=== PATIENT | male | born 1955 | race Caucasian/White ===

== ENCOUNTER 2021-08-09 15:54 | Outpatient (REF) | payer OTHER, SELFPAY ==
--- NOTE | 2021-08-09 16:29 | MHC.AU.ANR ---
Adult Audiological Evaluation Date of Visit: 08/09/21 Reason for Appointment: Audiological re-evaluation to monitor the status of his hearing loss. Mr. Lauren has a known asymmetrical, high-frequency, sensorineural hearing loss, with his right ear hearing worse than his left. He feels his hearing has been gradually decreasing, and he is now interested in trying a hearing aid. He notes that since his last visit, he saw Dr. Bagley regarding his asymmetric hearing. He states that Dr. Bagley did not mention an MRI. He denies any changes to his medical history. Does patient feel they have a hearing loss?: Yes If Yes, Which Ear?: Both Ears Has hearing been tested previously?: Yes [place] [facility] [place] In the left ear, normal hearing sloping to a moderate high-frequency sensorineural hearing loss. In the right ear, normal hearing sloping to a profound high-frequency sensorineural. Medical History: Medical History: High Blood Pressure, high cholesterol, heart problems which required a stent in 2002 Otoscopy: Right Ear: Unremarkable Left Ear: Unremarkable Tympanometry: Tympanometry performed due to: To assess integrity of the middle ear system Right Ear: Normal Middle Ear System (Type A) Left Ear: Normal Middle Ear System (Type A) Hearing Evaluation: Transducer(s) Used: Insert Earphones, Bone Conduction Method: Conventional Audiometry Stimuli Used: Pure Tones Right Ear: Description of Hearing: Normal hearing from 250-1000 Hz, steeply sloping to a mild to profound sensorineural hearing loss from 2706-2941 Hz. Hearing in the right ear is 20-45+ dBHL worse than the left from 8901-7901 Hz. Left Ear: Description of Hearing: Mild hearing loss at 250 Hz, rising to normal hearing from 500-1000 Hz, and sloping to a mild to moderate sensorineural hearing loss from 1957-6505 Hz. Speech Recognition Threshold (SRT): Method Used: Monitored Live Voice Stimuli Used: Spondee Words Right Ear: 15 dBHL Left Ear: 15 dBHL Word Discrimination: Method: Recorded Lists Word Lists Used: NU-6 Right Ear: 88% at 60 dBHL Left Ear: 92% at 60 dBHL Recommendations: Audiological re-evaluation in one year. Trial with amplification is recommended. Medical clearance from a physician is required before fitting. Discussed hearing aid styles, technologies, and options with Mr. Lauren. He will contact his insurance in regards to hearing aid benefits and consider his options. He was welcomed to return for a hearing aid consultation to further discuss hearing aids. Mr. Lauren may also consider a second opinion or return visit to an cyberathlete in order to rule out any retro-cochlear involvement in his asymmetric hearing loss. Diagnosis: Primary Diagnosis: H90.3 Bilateral Sensorineural Hearing Loss Services Performed: Services Performed: Comprehensive Audiological Evaluation (CPT 55785) Tympanometry (CPT 74789) Signature: Provider: Khadijah Gomes, CCC-A
--- NOTE | 2021-08-09 16:30 | MHC.AU.MED ---
Medical Clearance for Hearing Instrumentation Date: 08/09/21 Patient Name: Graham Lauren Date of : 1955 Primary Care Provider: Jacob Arriaga MD Referring Provider: Giselle Lyon NP We have seen your patient on 08/09/21 and have determined that they are a candidate for amplification (See accompanying report). Specifically, they would benefit from: Hearing aid use in both ears There is a statute that addresses Medical Evaluation Requirements prior to fitting a patient with a hearing aid. According to [place] statute 265 CMR:6.03(1), (a) General. Except as provided in 265 CMR 6.03(1)(b), a senior bioinformatics scientist shall not sell a hearing aid unless the prospective user has presented to the senior bioinformatics scientist a written statement signed by a licensed physician that states that the patient's hearing loss has been medically evaluated and the patient may be considered a candidate for a hearing aid. The medical evaluation must have taken place within the preceding six months. Please note: Due to the [place] Statute referenced above, we cannot accept a signature other than that of a licensed physician. PLATING DEPARTMENT HELPER and [place] signatures cannot be accepted. I am in agreement with the above recommendation. There is no medical contraindication for hearing instrumentation. Physician Signature Date Physician Name (Printed)
== END 2021-08-09 15:55 | disposition home or self-care (01) ==
LOC: HO.SH 15:54
PROVIDERS: PCP Hospitalist; Visit Provider Nurse Practitioner Family
DX: H90.3 Sensorineural hearing loss, bilateral (principal)
CPT/HCPCS: 92557; 92567

== ENCOUNTER 2025-02-12 01:55 | Inpatient (IN) | payer MEDICARE, SELFPAY ==
[2025-02-12] VITALS (20 sets, daily range): BP systolic 111–156; BP diastolic 65–97; PULSE 82–97; RESP 14–21; TEMP 36.2–37.1; O2SAT 92–98; BMI 27.3
--- NOTE | ~2025-02-12 | XR_ITS ---
EXAMINATION: X-ray lumbar spine 4 views. CLINICAL INFORMATION: Back pain. TECHNIQUE: AP oblique and lateral views lumbar spine. COMPARISON: None FINDINGS: Multilevel marginal osteophyte formation and endplate sclerosis and decreased intervertebral disc height throughout the axial skeleton. S-shaped curvature of the lumbar spine. No acute cortical disruption or gross malalignment. No lytic or blastic lesions. Vascular calcifications, aorta. XR/XR lumbar spine 4V min IMPRESSION: Multilevel thoracolumbar spondylosis without acute fracture or listhesis. Atherosclerosis disease, aorta. Electronically signed by: Fernando Meehan MD 02/16/2025 09:37 AM EDT
--- NOTE | ~2025-02-12 | CT_ITS ---
CLINICAL HISTORY: pancreatitis CT abdomen and pelvis with contrast Comparison: CT/SR - CT ABDOMEN PELVIS W IV CON - 02/12/25 03:33 EDT Findings: Small left-sided pleural effusion. Peripancreatic edema and fluid surrounding the tip of the pancreas has significantly progressed since the prior CT. Focal hypodensity in the tail of the pancreas indicating necrosis, seen best on series 2, image 24. Simple cysts in both kidneys. Punctate obstructing stone in the right kidney. No hydronephrosis. The liver, spleen, and adrenals are normal. Diffuse colonic diverticulosis. Pelvic contents unremarkable. Normal appendix. No acute fracture. Moderate multilevel degenerative disc disease and facet arthrosis. IMPRESSION: Worsening pancreatitis with focal necrosis. The head and the body of the pancreas are still spared. This document has been electronically signed by: Colton Sweeney MD on 02/16/2025 20:59:35
--- NOTE | ~2025-02-12 | CT_ITS ---
CLINICAL HISTORY: Pancreatitis Exam: CT abdomen and pelvis with intravenous contrast. Comparison: Chest x-ray from earlier today. Findings: CT abdomen: Lung bases are clear. Moderate to severe multilevel degenerative disc disease and degenerative facet disease within the mid to lower lumbar spine. No acute fracture identified. Dense coronary artery calcification. Calcification of the thoracic aorta, abdominal aorta, iliac arteries, and mesenteric arteries without occlusive phenomenon. Liver is enlarged measuring 20 cm in craniocaudal dimension. No focal hepatic lesions identified. Main portal vein is patent. Gallbladder is moderately distended without calcified gallstones. No focal splenic lesions. There is peripancreatic inflammatory stranding, especially involving the pancreatic tail. This extends adjacent to the spleen and tracks along the anterior perirenal space. Appropriate enhancement of the pancreas. No discrete fluid collection identified to suggest pseudocyst or abscess. Adrenal glands are unremarkable. Simple bilateral renal cysts. These measure 4.7 cm in size on the right and 4.1 cm in size on the left. Small to moderate-sized hiatal hernia. No dilated small bowel. No free air. CT pelvis: Appendix is normal. Moderate sigmoid diverticulosis without diverticulitis. No free fluid or free air. Likely postsurgical change along the mid to inferior aspect of the pelvis with areas of likely scarring and calcification. Impression: 1. CT findings indicative of pancreatitis as fully discussed above without findings of abscess, pancreatic necrosis, or portal vein thrombosis. 2. Hepatomegaly. 3. No findings of bowel obstruction. This document has been electronically signed by: Conrad Mccoy MD on 02/12/2025 04:42:36
--- NOTE | ~2025-02-12 | XR_ITS ---
EXAMINATION: XR BILATERAL HIPS WITH AP PELVIS CLINICAL INFORMATION: Hip pains COMPARISON: None available. TECHNIQUE: AP view of the pelvis and single views of each hip were obtained. FINDINGS: Sclerosis along the articular surfaces of the hips, sacroiliac joints and symphysis pubis. No acute cortical disruption or gross malalignment in either hip. Bony pelvis is intact. Metallic coils overlapping the lower pelvis. Spondylosis at L4-5 and L5-S1. No lytic or blastic lesions. Vascular clips in the inguinal scrotal region suggesting vasectomy, bilaterally. XR/XR hip BI w [id number] IMPRESSION: Mild to moderate osteoarthrosis both hips without acute fracture or dislocation. Electronically signed by: Fernando Meehan MD 02/16/2025 09:35 AM EDT
--- NOTE | ~2025-02-12 | XR_ITS ---
CLINICAL HISTORY: chest pain 1 view chest x-ray Comparison: None Findings: No consolidation or effusion. Heart size is normal. No acute fracture. IMPRESSION: 1. No acute findings. This document has been electronically signed by: Conrad Mccoy MD on 02/12/2025 02:31:30
--- NOTE | ~2025-02-12 | CT_ITS ---
EXAMINATION: CT ABDOMEN AND PELVIS WITH CONTRAST CLINICAL INFORMATION: Pancreatitis, follow-up COMPARISON: February 16, 2025. TECHNIQUE: Multidetector volumetric images were obtained from the superior aspect of the liver through the pubic symphysis following administration 85 mL of Omnipaque 350 intravenous contrast. Sagittal and coronal reformatted images were obtained on the technologist's workstation. Oral contrast: No This CT examination was performed using dose optimization techniques as appropriate, variously including the following: *Automated exposure control *Adjustment of mA and/or kV according to patient size (this includes techniques or standardized protocols for targeted exams where dose is matched to indication/reason for exam; i.e. extremities or head) *Use of iterative reconstruction technique DLP: 581 mGy centimeter. FINDINGS: There is of fluid within the lesser sac, peripancreatic body tail junction into the left paracolic gutter. No gross fluid collection. Decreased enhancement pattern of the pancreatic parenchyma at the body tail junction. No gas-forming attenuation. No main pancreatic ductal dilatation. The splenic vessels are patent. No gross contour irregularity of the splenic artery. Left-sided pleural effusion, small to moderate volume and atelectasis versus infiltrate, left lung base. No other additional or new findings since prior recent examination. CT/CT abdomen pelvis w IV con IMPRESSION: Acute pancreatitis with persistent moderate volume loss peripancreatic body tail fluid into the left pericolic gutter without pseudocyst formation. No splenic vein thrombosis or gross splenic artery pseudoaneurysm. Fleischner guidelines were followed. Electronically signed by: Fernando Meehan MD 02/19/2025 11:21 AM EDT
--- NOTE | 2025-02-12 02:03 | ECG_ITS ---
Test Reason : cp Blood Pressure : */* mmHG Vent. Rate : 89 BPM Atrial Rate : 89 BPM P-R Int : 142 ms QRS Dur : 88 ms QT Int : 360 ms P-R-T Axes : 37 50 41 degrees QTcB Int : 438 ms Normal sinus rhythm Possible Left atrial enlargement Possible Inferior infarct (cited on or before 30-Nov-2002) Abnormal ECG When compared with ECG of 12-Feb-2025 02:04, Left posterior fascicular block is no longer Present Referred By: Generic ED Physician Electronically Signed By: Michel Madsen
[2025-02-12 02:16] LABS: MANUAL DIFF FLAG NO
[2025-02-12 02:27] LABS: Basophils Absolute Auto 0.1 X10*3/uL (0.0-0.2); Basophils Percent Auto 0.4 % (0-2); Eosinophils Absolute Auto 0.1 X10*3/uL (0.0-0.4); Eosinophils Percent Auto 0.9 % (0-4); Hemoglobin 14.3 g/dl (14.0-18.0); Imm Gran Abs Auto 0.03 X10*3/uL (0.00-0.03); Imm Gran Pct Auto 0.3 % (0.0-0.4); Lymphocytes Absolute Auto 0.8 X10*3/uL (1.2-4.9); Lymphocytes Percent Auto 6.7 % (20-40); Mean Corpuscular HGB Conc 36.7 g/dl (31.0-36.0); Mean Corpuscular Hemoglobin 29.8 pg (27.0-33.0); Mean Corpuscular Volume 81.3 fL (80.0-98.0); Mean Platelet Volume 8.7 fL (9.4-12.4); Monocytes Absolute Auto 0.9 X10*3/uL (0.1-1.2); Monocytes Percent Auto 7.5 % (2-11); Neutrophils Absolute Auto 10.1 x10*3/uL (2.0-8.3); Neutrophils Percent Auto 84.2 % (45-73); Platelet Count 242 X10*3/uL (160-400); Red Cell Distribution Width 12.3 % (11.0-16.0)
[2025-02-12 02:32] LABS: INTERNATIONAL NORM RATIO 1.1 (0.9-1.1); Prothrombin Time 12.7 SEC (10.9-12.4)
[2025-02-12 02:37] LABS: Alanine Aminotransferase 71 U/L (0-40); Albumin Level 3.8 g/dL (3.5-5.0); Alkaline Phosphatase 117 U/L (39-117); Anion Gap 20 (12-20); Aspartate Amino Transferase 99 U/L (5-37); Bilirubin Total 0.7 mg/dL (0.0-1.0); Blood Urea Nitrogen 11 mg/dL (9-16); Calcium 8.9 mg/dL (8.4-10.2); Carbon Dioxide 17 mmol/L (22-29); Chloride 99 mmol/L (96-108); Creatinine Clr Calc Pharmacy 98.6; Estimated Glomerular Filt Rate > 60; Glucose Random 131 mg/dL (60-115); Potassium 3.6 mmol/L (3.3-5.1); Sodium 132 mmol/L (135-145); Total Protein 6.8 g/dL (6.5-8.0); Troponin-I High Sensitivity < 2.7 ng/L (<3.5-35.0)
[2025-02-12 02:51] LABS: Lipase 877 U/L (8-78)
--- NOTE | 2025-02-12 03:17 | PC.NURSE ---
PT comes in from triage with complaints of periumbilical abdominal pain that is radiating bilateral quadarants and to left chest. he has been dealing with symptoms for 4 weeks now. Recently had imaging done and reports colitis and small kidney stones. Came into ED because pain got worse- 06/23 and he has had multiple bouts of vomitting at home. Pt is a daily drinker. States his drinking increased 4 months ago. he drink 3 beers a day HX of MD from 2006? and recent stent placed in jun. 20g IV line placed in right AC. notified provider of PT's active vomiting
[2025-02-12] MEDS: Morphine Sulfate 4 MG/ML CARTRIDGE IVPUSH ×2 (03:22→05:35)
[2025-02-12] MEDS: 0.9 % Sodium Chloride 1,000 ML 999 ML IV (03:22)
[2025-02-12] MEDS: ondansetron HCL 4 MG/2 ML VIAL IVPUSH ×3 (03:22→21:22)
--- NOTE | 2025-02-12 03:29 | ED.ABDPAIN ---
HPI - Abdominal Pain General Chief Complaint: Abdominal Pain Stated Complaint: severe abd pain/chest pain/dx of colitis Time Seen by Provider: 02/12/25 02:54 Source: patient Mode of arrival: ambulatory Limitations: no limitations History of Present Illness ED Provider: HPI narrative: Patient has been having abdominal pain for last 4 months for last 2 days been worse more in mid abdomen radiating to the back vomiting few times had CT scan of the abdomen last week for pain it which was slight inflammation of the colon patient's drinks 2-3 beer a day but lately for last 2 weeks patient has been drinking heavy no prior history of pancreatitis no history of gallstones no fever no chills no diarrhea patient does have a hyperlipidemia taking simvastatin Related Data Allergies Allergy/AdvReac Type Severity Reaction Status Date / Time No Known Allergies Allergy Verified 02/12/25 02:02 Review of Systems Review of Systems Yes all other systems are reviewed and are negative ON LICENSE OF [facility] Social History Social History Alcohol intake: current Alcohol intake frequency: 3 or more drinks per day Alcohol type: beer Smoked in Last 30 Days: No Advance Directives: No Advance Directives Information Provided: Yes Do you have a plan to hurt others: No Plan Physical Exam ED Vital Signs: Vital Signs - 24 hr 02/12/25 02:00 02/12/25 03:22 02/12/25 04:00 Temperature 97.2 F 98.8 F Pulse Rate 93 84 Respiratory Rate 18 18 Blood Pressure 111/78 153/95 H Pulse Oximetry 98 97 Oxygen Delivery Method Room Air Room Air 02/12/25 05:35 Temperature Pulse Rate Respiratory Rate 20 Blood Pressure Pulse Oximetry Oxygen Delivery Method BMI result Body Mass Index 27.3 Appearance: Alert. Oriented X3. No acute distress. Eyes: No pallor or icterus ENT: Pharynx normal. Oral Mucosa moist Neck: Normal inspection. Neck supple. CVS: Normal heart rate and rhythm. Pulses normal. Respiratory: No respiratory distress. Equal air entry bilateral, no wheezing/rales/rhonchi Abdomen: Soft and tender mid abdomen Bowel sounds are present, no mass palpable, no CVA tenderness Skin: Skin warm and dry. Normal skin color. Normal skin turgor. Extremities: No lower extremity edema. No calf tenderness Neuro: Oriented X 3. No motor deficit. No sensory deficit.No cerebellar signs , cranial nerves II-XII intact Medical Decision Making Medical Decision Making MDM Narrative: Patient with abdominal pain workup showed elevated lipase and CT scan showed inflammation around the pancreas no fluid collection will admit patient for pancreatitis for pain control Lab workup showed elevated triglyceride level of 1978 at this high level need to start on insulin drip for hypertriglyceridemia will admit to ICU Patient will be going to the ICU after 07:00 Dr. Ashton aware about admission Differential Diagnosis Differential Diagnoses: The differential diagnosis associated with the presentation includes Pancreatitis/gastritis/ Admission/Observation Consideration of admission/observation: Escalation of care including admission/observation considered Consult Healthcare Provider Management of the patient was discussed with: Hospitalist Lab Data [facility] Lab Attestation statement: I reviewed the patient's lab results. 02/12/25 02:11 02/12/25 02:11 Labs: Lab Results 02/12/25 02/12/25 02/12/25 Range/Units 02:11 05:56 06:32 WBC 12.0 H (4.8-10.8) X10*3/uL RBC 4.80 (4.60-5.80) X10*6/uL Hgb 14.3 (14.0-18.0) g/dl Hct 39.0 L (42.0-52.0) % MCV 81.3 (80.0-98.0) fL MCH 29.8 (27.0-33.0) pg MCHC 36.7 H (31.0-36.0) g/dl RDW 12.3 (11.0-16.0) % Plt Count 242 (160-400) X10*3/uL MPV 8.7 L (9.4-12.4) fL Immature Gran % (Auto) 0.3 (0.0-0.4) % Neut % (Auto) 84.2 H (45-73) % Lymph % (Auto) 6.7 L (20-40) % [place] % (Auto) 7.5 (2-11) % Eos % (Auto) 0.9 (0-4) % Baso % (Auto) 0.4 (0-2) % Lymph # (Auto) 0.8 L (1.2-4.9) X10*3/uL [place] # (Auto) 0.9 (0.1-1.2) X10*3/uL Eos # (Auto) 0.1 (0.0-0.4) X10*3/uL Baso # (Auto) 0.1 (0.0-0.2) X10*3/uL Abs Immat Gran (auto) 0.03 (0.00-0.03) X10*3/uL Absolute Neuts (auto) 10.1 H (2.0-8.3) x10*3/uL Absolute Nucleated RBC 0.000 (0.0-0.012) X10*3/uL Nucleated RBC % (auto) 0.0 (0.0-0.2) /100WBC PT 12.7 H (10.9-12.4) SEC INR 1.1 (0.9-1.1) Sodium 132 L (135-145) mmol/L Potassium 3.6 (3.3-5.1) mmol/L Chloride 99 (96-108) mmol/L Carbon Dioxide 17 L (22-29) mmol/L Anion Gap 20 (12-20) BUN 11 (9-16) mg/dL Creatinine 0.74 (0.5-1.4) mg/dL Estim Creat Clear Calc 98.6 Estimated GFR > 60 POC Glucose 123 H 124 H (60-115) mg/dL Random Glucose 131 H (60-115) mg/dL Calcium 8.9 (8.4-10.2) mg/dL Total Bilirubin 0.7 (0.0-1.0) mg/dL AST 99 H (5-37) U/L ALT 71 H (0-40) U/L Alkaline Phosphatase 117 (39-117) U/L Troponin I High Sens < 2.7 (<3.5-35.0) ng/L Total Protein 6.8 (6.5-8.0) g/dL Albumin 3.8 (3.5-5.0) g/dL Triglycerides 1978 H (<150) mg/dL Lipase 877 H (8-78) U/L Independent Interpretation I performed an independent interpretation of an: CT Scan Radiology Impression Discussion of test interpretation with radiology: I have reviewed the radiologist's reading. Radiologist Impression: Impression: 1. CT findings indicative of pancreatitis as fully discussed above without findings of abscess, pancreatic necrosis, or portal vein thrombosis. 2. Hepatomegaly. 3. No findings of bowel obstruction. This document has been electronically signed by: Conrad Mccoy MD on 02/12/2025 04:42:36 Medications Administered Generic Name Dose Route Start Last Admin Trade Name Freq PRN Reason Stop Dose Admin Dextrose/Lactated Ringer's 1,000 mls @ 100 mls/hr 02/12/25 05:45 02/12/25 06:05 D5lr IVCONT 100 mls/hr .Q10H SMILEY Administration Discontinued Medications Generic Name Dose Route Start Last Admin Trade Name Freq PRN Reason Stop Dose Admin Sodium Chloride 1,000 mls @ 999 mls/hr 02/12/25 02:55 02/12/25 04:30 Ns IV 02/12/25 03:55 Infused .Q1H1M ONE Infusion Thiamine HCl 200 mg/ Sodium 102 mls @ 204 mls/hr 02/12/25 05:18 02/12/25 05:52 Chloride IV 02/12/25 05:47 204 mls/hr ONCE ONE Administration Iohexol 85 ml 02/12/25 03:45 02/12/25 03:47 Iohexol 350 Mg/Ml 100 Ml Infus..Btl IV 02/12/25 03:46 85 ml ONCE ONE Administration Morphine Sulfate 4 mg 02/12/25 03:11 02/12/25 03:22 Morphine Sulfate 4 Mg/Ml Cartridge IVPUSH 02/12/25 03:12 4 mg ONCE ONE Administration Protocol Morphine Sulfate 4 mg 02/12/25 05:16 02/12/25 05:35 Morphine Sulfate 4 Mg/Ml Cartridge IVPUSH 02/12/25 05:17 4 mg ONCE ONE Administration Protocol Ondansetron HCl 4 mg 02/12/25 03:11 02/12/25 03:22 Ondansetron Hcl 4 Mg/2 Ml Vial IVPUSH 02/12/25 03:12 4 mg ONCE ONE Administration Pantoprazole Sodium 40 mg 02/12/25 05:16 02/12/25 05:35 Pantoprazole Sodium 40 Mg/10 Ml Vial IVPUSH 02/12/25 05:17 40 mg ONCE ONE Administration Critical Care Time Critical Care Time Critical Care Time: Yes Total Critical Care Time: 60 Attestation: The patient was critically ill with a high probability of imminent or life threatening deterioration. I spent greater than 70???minutes of discontinuous time evaluating the patient,delivering critical care at the bedside, discussing and evaluating pertinent data with consultants. Critical care time does not include time spent performing separately billable procedures or teaching. Total time spent performing critical care was 60???minutes. Discharge Plan Discharge Clinical Impression: Pancreatitis, Essential hypertriglyceridemia Patient Disposition: Admitted As Inpatient Print Language: Korean
[2025-02-12] MEDS: iohexoL 350 MG/ML 100 ML INFUS..BTL 85 ML IV (03:47)
[2025-02-12 05:23] LABS: Triglycerides 1978 mg/dL (<150)
[2025-02-12] MEDS: Pantoprazole Sodium 40 MG/10 ML VIAL IVPUSH (05:35)
[2025-02-12] MEDS: Thiamine HCL 200 MG in 0.9 % Sodium Chloride 100 ML 204 MG IV (05:52)
[2025-02-12 06:00] LABS: Glucose, Whole Blood 123 mg/dL (60-115)
[2025-02-12] MEDS: Dextrose 5 % and Lactated Ring 1,000 ML 100 ML IVCONT ×3 (06:05→19:46)
[2025-02-12 06:36] LABS: Glucose, Whole Blood 124 mg/dL (60-115)
--- NOTE | 2025-02-12 06:36 | PC.NURSE ---
Per provider Jose/Kasey, insulin drip to be started when POC >200.
[2025-02-12] MEDS: Dextrose 50 % 25 GM/50 ML SYRINGE IVPUSH (06:44)
[2025-02-12 07:00] LABS: Glucose, Whole Blood 249 mg/dL (60-115)
[2025-02-12] MEDS: Insulin Regular/NS 100 UNIT/100 ML PLAST..BAG IVCONT (07:10)
[2025-02-12] MEDS: HYDROmorphone HCl 1 MG/ML SYRINGE IVPUSH ×8 (08:04→23:58)
[2025-02-12 08:16] LABS: Glucose, Whole Blood 136 mg/dL (60-115)
[2025-02-12 08:37] LABS: Anion Gap 17 (12-20); Blood Urea Nitrogen 8 mg/dL (9-16); Calcium 8.1 mg/dL (8.4-10.2); Carbon Dioxide 18 mmol/L (22-29); Chloride 100 mmol/L (96-108); Creatinine Clr Calc Pharmacy 104.2; Estimated Glomerular Filt Rate > 60; Glucose Random 123 mg/dL (60-115); Potassium 3.3 mmol/L (3.3-5.1); Sodium 132 mmol/L (135-145)
--- NOTE | 2025-02-12 09:00 | PHA.MEDREC ---
Pharmacy Consult ? Medication Reconciliation Pharmacy has completed the medication reconciliation. Spoke to patient to confirm the medication list. Per patient, he does not take bupropion no lorazepam (switched to clonazepam). He takes mirtazapine 7.5 mg at bedtime prn. Last dose of medications was yesterday 02/11/25.
[2025-02-12] MEDS: Heparin Sodium,Porcine 5,000 UNIT/ML VIAL 5000 UNIT SUBCUT ×2 (09:07→15:54)
[2025-02-12 09:37] LABS: Glucose, Whole Blood 114 mg/dL (60-115)
[2025-02-12 11:11] LABS: Glucose, Whole Blood 118 mg/dL (60-115)
--- NOTE | 2025-02-12 11:35 | P.HPCC_ITS ---
History of Present Illness Date of Service: 02/12/25 Chief Complaint: Abdominal pain 69-year-old gentleman with underlying history of alcohol abuse, CAD, hypertension, GERD, BPH admitted on 02/12/2025 with acute on chronic abdominal pain overall ongoing for 3-4 months, but significantly worse over 2 days prior to admission. On ER evaluation patient with moderate epigastric tenderness with evidence of pancreatitis on laboratory studies and imaging, but no evidence of necrosis. Also noted to have significant hypertriglyceridemia. Patient started on insulin drip, IV fluid support, and parenteral pain medications and admitted to the intensive care unit. Review of Systems 2 Constitutional: Constitutional: Denies daytime sleepiness, Denies excessive sweating, Denies fatigue, Denies fever(s), Denies lethargy, Denies malaise, Denies night sweats, Denies snoring and Denies weight loss Eyes: Eyes: Denies blurry vision and Denies itchy eyes ENT: Denies nasal congestion, Denies post nasal drip, Denies sinus pain, Denies sinus pressure and Denies other ( Thrush) Cardiovascular: Cardiovascular: Denies chest pain, Denies pedal edema, Denies dyspnea, Denies orthopnea and Denies paroxysmal nocturnal dyspnea Respiratory: Respiratory: Denies cough, Denies hemoptysis, Denies excessive phlegm production, Denies dyspnea, Denies snoring and Denies wheezing Gastrointestinal: Gastrointestinal: Reports abdominal pain (Epigastric), Denies heartburn and Reports nausea Musculoskeletal: Musculoskeletal: Denies myalgias, Denies arthralgias and Denies joint swelling Integumentary/Breasts: Skin/Breast: Denies rash Neurologic: Denies memory loss and Denies seizure-like activity Psychiatric: Psychiatric: Denies abnormal sleep pattern, Denies anxiety and Denies memory loss Endocrine: Endocrine: Denies excessive sweating, Denies fatigue and Denies heat intolerance Hematologic/Lymphatic: Hematologic/Lymphatic: Denies easy bruising Allergic/Immunologic: Allergic/Immunologic: Denies itchy eyes, Denies seasonal rhinorrhea and Denies wheezing PMFSH Social History Social History Household Members: Spouse Housing: House Do you presently have visiting nurse or other home services: No Alcohol intake: current Alcohol intake frequency: 3 or more drinks per day Alcohol type: beer Patient Tobacco Use Status: Former Tobacco user Smoked in Last 30 Days: No Use of substances other than those prescribed or required for medical reasons: No Have you been hit, kicked, punched, or otherwise hurt by someone within the past year? If so, by whom?: No Do you feel safe in your current relationship?: Yes Is there a partner from a previous relationship who is making you feel unsafe now?: No Are you made to feel afraid or neglected: No Advance Directives: No Advance Directives Information Provided: Yes Do you have a plan to hurt others: No Plan Recently lost weight without trying: No Nutrition Risks: No Nutritional Risk Poor oral hygiene: No Meds Allergies Allergy/AdvReac Type Severity Reaction Status Date / Time No Known Allergies Allergy Verified 02/12/25 02:02 Active Medications: Current Medications Heparin Sodium (Porcine) (Heparin Sodium,Porcine 5,000 Unit/Ml Vial) 5,000 unit SUBCUT Q8H [facility] Last Admin: 02/12/25 09:07 Dose: 5,000 unit Insulin Human Regular (Myxredlin) 100 unit in 100 mls @ 0 mls/hr IVCONT .Q0M [facility]; Protocol Last Titration: 02/12/25 08:14 Dose: 0.5 unit/hr, 0.5 mls/hr Dextrose/Lactated Ringer's (D5lr) 1,000 mls @ 100 mls/hr IVCONT .Q10H [facility] Last Admin: 02/12/25 06:05 Dose: 100 mls/hr Home Medications ?Medication ?Instructions ?Recorded ?Confirmed ?Last Taken ?Type amlodipine 5 mg tablet 5 mg PO DAILY 02/12/25 02/12/25 02/11/25 History carvedilol 6.25 mg tablet 6.25 mg PO BID 02/12/25 02/12/25 02/11/25 History clonazepam 0.5 mg tablet 0.5 mg PO BID 02/12/25 02/12/25 02/11/25 History clopidogrel 75 mg tablet 75 mg PO DAILY 02/12/25 02/12/25 02/11/25 History fluoxetine 40 mg capsule 80 mg PO DAILY 02/12/25 02/12/25 02/11/25 History isosorbide mononitrate 30 mg 30 mg PO QAM 02/12/25 02/12/25 02/11/25 History tablet,extended release 24 hr lisinopril 5 mg tablet 5 mg PO DAILY 02/12/25 02/12/25 02/11/25 History mirtazapine 15 mg tablet 7.5 mg PO BEDTIME PRN insomnia 02/12/25 02/12/25 Unknown History multivitamin 1 tab PO DAILY 02/12/25 02/12/25 02/11/25 History nitroglycerin 0.4 mg sublingual 0.4 mg sublingual NEEDED angina 02/12/25 02/12/25 Unknown History tablet omeprazole 20 mg capsule,delayed 20 mg PO DAILY 02/12/25 02/12/25 02/11/25 History release oxycodone-acetaminophen 5 mg-325 1.5 tab PO QID PRN pain 02/12/25 02/12/25 02/11/25 History mg tablet sildenafil 100 mg tablet 100 mg PO DAILY 02/12/25 02/12/25 02/11/25 History simvastatin 40 mg tablet 40 mg PO BEDTIME 02/12/25 02/12/25 02/11/25 History tamsulosin 0.4 mg capsule 0.8 mg PO BEDTIME 02/12/25 02/12/25 02/11/25 History Physical Exam 2 Vital Signs: Vital Signs: Last Vital Signs Temp 98.4 F 02/12/25 07:59 Pulse 89 02/12/25 11:00 Resp 20 02/12/25 11:00 BP 140/85 H 02/12/25 11:00 Pulse Ox 96 02/12/25 11:00 O2 Del Method Room Air 02/12/25 11:00 BMI result Body Mass Index 27.3 Const: General: no acute distress, alert and awake Eyes: Sclerae: sclerae normal EOM: EOMs intact bilaterally Neck: Neck: Yes no lymphadenopathy, Yes trachea midline and Yes supple Resp: Effort & Inspection: normal respiratory effort and no respiratory distress Auscultation: clear to auscultation bilaterally Cardio: Rate: regular rate Rhythm: regular rhythm Heart sounds: no gallops, no murmurs and no rubs GI: Palpation (GI): Soft to palpation and Tenderness to palpation present (GI) (Moderate epigastric, no rebound) Auscultation: Hypoactive bowel sounds present Extrem: General: Yes no pedal edema, No clubbing and No cyanosis Results Labs 02/12/25 02:11 02/12/25 08:18 Labs: Laboratory Results - last 24 hr 02/12/25 02/12/25 02/12/25 02:11 05:56 06:32 MCV 81.3 MCH 29.8 MCHC 36.7 H RDW 12.3 Plt Count 242 MPV 8.7 L Immature Gran % (Auto) 0.3 Neut % (Auto) 84.2 H Lymph % (Auto) 6.7 L [place] % (Auto) 7.5 Eos % (Auto) 0.9 Baso % (Auto) 0.4 Lymph # (Auto) 0.8 L [place] # (Auto) 0.9 Eos # (Auto) 0.1 Baso # (Auto) 0.1 Abs Immat Gran (auto) 0.03 Absolute Neuts (auto) 10.1 H Absolute Nucleated RBC 0.000 Nucleated RBC % (auto) 0.0 PT 12.7 H INR 1.1 Anion Gap 20 Estim Creat Clear Calc 98.6 Estimated GFR > 60 POC Glucose 123 H 124 H Random Glucose 131 H Calcium 8.9 Total Bilirubin 0.7 AST 99 H ALT 71 H Alkaline Phosphatase 117 Total Protein 6.8 Albumin 3.8 Triglycerides 1978 H Lipase 877 H 02/12/25 02/12/25 02/12/25 06:56 08:12 08:18 MCV MCH MCHC RDW Plt Count MPV Immature Gran % (Auto) Neut % (Auto) Lymph % (Auto) [place] % (Auto) Eos % (Auto) Baso % (Auto) Lymph # (Auto) [place] # (Auto) Eos # (Auto) Baso # (Auto) Abs Immat Gran (auto) Absolute Neuts (auto) Absolute Nucleated RBC Nucleated RBC % (auto) PT INR Anion Gap 17 Estim Creat Clear Calc 104.2 Estimated GFR > 60 POC Glucose 249 H 136 H Random Glucose 123 H Calcium 8.1 L D Total Bilirubin AST ALT Alkaline Phosphatase Total Protein Albumin Triglycerides Lipase 02/12/25 02/12/25 09:34 11:07 MCV MCH MCHC RDW Plt Count MPV Immature Gran % (Auto) Neut % (Auto) Lymph % (Auto) [place] % (Auto) Eos % (Auto) Baso % (Auto) Lymph # (Auto) [place] # (Auto) Eos # (Auto) Baso # (Auto) Abs Immat Gran (auto) Absolute Neuts (auto) Absolute Nucleated RBC Nucleated RBC % (auto) PT INR Anion Gap Estim Creat Clear Calc Estimated GFR POC Glucose 114 118 H Random Glucose Calcium Total Bilirubin AST ALT Alkaline Phosphatase Total Protein Albumin Triglycerides Lipase Assessment and Plan (1) Pancreatitis: Status: Acute (2) Hypertriglyceridemia: Status: Acute (3) Alcohol abuse: Status: Acute (4) Hypertension: Status: Acute (5) CAD (coronary artery disease): Status: Acute Plan Assessment: 69-year-old gentleman admitted with acute pancreatitis with hypertriglyceridemia on a background of increased alcohol consumption Plan: Neuro: No acute issues. Cardiac: No acute issues. Pulmonary: No acute issues. Renal: No acute issues. Endo: Acute pancreatitis with hypertriglyceridemia and after ground of increased alcohol consumption. CT abdomen with no evidence of necrosis. Continue with IV fluid support. Continue insulin drip until triglycerides under 1000. Pain control. GI: No acute issues. ID: No acute issues Heme/Onc: No acute issues. Psych: No acute issues. Miscellaneous: No acute issues. Prophylaxis: Heparin Diet: NPO
[2025-02-12] MEDS: Potassium Chloride/H20 10 MEQ/100 ML PIGGYBACK 100 MEQ IV ×6 (11:56→22:00)
[2025-02-12 12:06] LABS: Glucose, Whole Blood 135 mg/dL (60-115)
[2025-02-12 13:13] LABS: Glucose, Whole Blood 124 mg/dL (60-115)
[2025-02-12 14:49] LABS: Glucose, Whole Blood 114 mg/dL (60-115)
[2025-02-12 15:26] LABS: Glucose, Whole Blood 111 mg/dL (60-115)
[2025-02-12 16:12] LABS: Glucose, Whole Blood 125 mg/dL (60-115)
[2025-02-12 16:59] LABS: Glucose, Whole Blood 122 mg/dL (60-115)
[2025-02-12 18:01] LABS: Glucose, Whole Blood 141 mg/dL (60-115)
[2025-02-12 19:05] LABS: Glucose, Whole Blood 146 mg/dL (60-115)
[2025-02-12 19:50] LABS: Anion Gap 13 (12-20); Blood Urea Nitrogen 8 mg/dL (9-16); Calcium 8.3 mg/dL (8.4-10.2); Carbon Dioxide 23 mmol/L (22-29); Chloride 101 mmol/L (96-108); Creatinine Clr Calc Pharmacy 101.3; Estimated Glomerular Filt Rate > 60; Glucose Random 119 mg/dL (60-115); Magnesium 1.6 mg/dL (1.6-2.6); Phosphorus 2.6 mg/dL (2.7-4.5); Potassium 3.2 mmol/L (3.3-5.1); Sodium 134 mmol/L (135-145)
[2025-02-12 20:04] LABS: Glucose, Whole Blood 137 mg/dL (60-115)
[2025-02-12] MEDS: Potassium Phosphate/NS 15 MMOL/250 ML PLAST..BAG 62.5 MMOL IV (20:54)
[2025-02-12 22:16] LABS: Glucose, Whole Blood 128 mg/dL (60-115)
[2025-02-12 23:59] LABS: Glucose, Whole Blood 127 mg/dL (60-115)
[2025-02-13] VITALS (17 sets, daily range): BP systolic 116–158; BP diastolic 75–94; PULSE 85–104; RESP 14–20; TEMP 36.1–37; O2SAT 90–97; BMI 26.9
[2025-02-13] MEDS: Heparin Sodium,Porcine 5,000 UNIT/ML VIAL 5000 UNIT SUBCUT ×3 (00:03→16:11)
[2025-02-13 01:57] LABS: Glucose, Whole Blood 139 mg/dL (60-115)
[2025-02-13] MEDS: HYDROmorphone HCl 1 MG/ML SYRINGE IVPUSH ×7 (02:53→20:23)
[2025-02-13 04:15] LABS: Glucose, Whole Blood 152 mg/dL (60-115)
[2025-02-13] MEDS: ondansetron HCL 4 MG/2 ML VIAL IVPUSH ×2 (04:56→20:21)
[2025-02-13 05:06] LABS: VBG Base Excess 0.5 mmol/L; VBG HCO3 23 mmol/L (22-26); VBG pCO2 32 mmHg; VBG pH 7.46 (7.32-7.43); VBG pO2 53 mmHg
[2025-02-13 05:09] LABS: MANUAL DIFF FLAG NO
[2025-02-13 05:13] LABS: Basophils Percent Auto 0.3 % (0-2); Hematocrit 40.4 % (42.0-52.0); Hemoglobin 14.2 g/dl (14.0-18.0); Imm Gran Abs Auto 0.13 X10*3/uL (0.00-0.03); Lymphocytes Absolute Auto 0.7 X10*3/uL (1.2-4.9); Lymphocytes Percent Auto 4.9 % (20-40); Mean Corpuscular HGB Conc 35.1 g/dl (31.0-36.0); Mean Corpuscular Hemoglobin 29.2 pg (27.0-33.0); Mean Corpuscular Volume 83.1 fL (80.0-98.0); Mean Platelet Volume 9.2 fL (9.4-12.4); Monocytes Absolute Auto 0.9 X10*3/uL (0.1-1.2); Monocytes Percent Auto 6.9 % (2-11); Neutrophils Absolute Auto 11.9 x10*3/uL (2.0-8.3); Neutrophils Percent Auto 86.9 % (45-73); Platelet Count 170 X10*3/uL (160-400); Red Blood Count 4.86 X10*6/uL (4.60-5.80); White Blood Count 13.7 X10*3/uL (4.8-10.8)
[2025-02-13 05:45] LABS: Alanine Aminotransferase 117 U/L (0-40); Albumin Level 3.3 g/dL (3.5-5.0); Alkaline Phosphatase 162 U/L (39-117); Anion Gap 13 (12-20); Aspartate Amino Transferase 171 U/L (5-37); Bilirubin Total 1.1 mg/dL (0.0-1.0); Blood Urea Nitrogen 9 mg/dL (9-16); Calcium 8.5 mg/dL (8.4-10.2); Carbon Dioxide 23 mmol/L (22-29); Chloride 102 mmol/L (96-108); Creatinine Clr Calc Pharmacy 93.5; Estimated Glomerular Filt Rate > 60; Glucose Random 148 mg/dL (60-115); Lipase 121 U/L (8-78); Magnesium 1.6 mg/dL (1.6-2.6); Phosphorus 2.5 mg/dL (2.7-4.5); Potassium 3.4 mmol/L (3.3-5.1); Sodium 135 mmol/L (135-145); Total Protein 6.1 g/dL (6.5-8.0); Triglycerides 444 mg/dL (<150)
[2025-02-13 06:07] LABS: Glucose, Whole Blood 160 mg/dL (60-115)
[2025-02-13] MEDS: Lactated Ringers 1,000 ML 150 ML IVCONT (06:08)
[2025-02-13] MEDS: gemfibroziL 600 MG TABLET PO ×2 (09:34→16:10)
--- NOTE | 2025-02-13 10:01 | P.PNCC_ITS ---
Subjective Subjective Date of Service: 02/13/25 Interval History: 69-year-old gentleman with underlying history of alcohol abuse, CAD, hypertension, GERD, BPH admitted on 02/12/2025 with acute on chronic abdominal pain overall ongoing for 3-4 months, but significantly worse over 2 days prior to admission. On ER evaluation patient with moderate epigastric tenderness with evidence of pancreatitis on laboratory studies and imaging, but no evidence of necrosis. Also noted to have significant hypertriglyceridemia. Patient started on insulin drip, IV fluid support, and parenteral pain medications and admitted to the intensive care unit. No events overnight. Triglycerides improved to 400s, insulin drip stopped. Critical Care Time (minutes): 0 Physical Exam 2 Vital Signs: Vital Signs: Last Vital Signs Temp 97.8 F 02/13/25 08:00 Pulse 89 02/13/25 09:00 Resp 16 02/13/25 09:00 BP 138/88 02/13/25 09:00 Pulse Ox 94 02/13/25 09:00 O2 Del Method Room Air 02/13/25 09:00 BMI result Body Mass Index 26.9 Const: General: no acute distress, alert and awake Eyes: Sclerae: sclerae normal EOM: EOMs intact bilaterally Neck: Neck: Yes no lymphadenopathy, Yes trachea midline and Yes supple Resp: Effort & Inspection: normal respiratory effort and no respiratory distress Auscultation: clear to auscultation bilaterally Cardio: Rate: tachycardic Rhythm: regular rhythm Heart sounds: no gallops, no murmurs and no rubs GI: Palpation (GI): Soft to palpation and Tenderness to palpation present (GI) (Mild epigastric, no rebound) Auscultation: normal bowel sounds Extrem: General: Yes no pedal edema, No clubbing and No cyanosis Objective Data Labs 02/13/25 04:58 02/13/25 04:58 Labs: Laboratory Results - last 24 hr 02/12/25 02/12/25 02/12/25 11:07 12:03 13:10 WBC RBC Hgb Hct MCV MCH MCHC RDW Plt Count MPV Immature Gran % (Auto) Neut % (Auto) Lymph % (Auto) [place] % (Auto) Eos % (Auto) Baso % (Auto) Lymph # (Auto) [place] # (Auto) Eos # (Auto) Baso # (Auto) Abs Immat Gran (auto) Absolute Neuts (auto) Absolute Nucleated RBC Nucleated RBC % (auto) Hold Purple Top VBG pH VBG pCO2 VBG pO2 VBG HCO3 VBG O2 Saturation VBG Base Excess Sodium Potassium Chloride Carbon Dioxide Anion Gap BUN Creatinine Estim Creat Clear Calc Estimated GFR POC Glucose 118 H 135 H 124 H Random Glucose Calcium Phosphorus Magnesium Total Bilirubin AST ALT Alkaline Phosphatase Total Protein Albumin Triglycerides Lipase 02/12/25 02/12/25 02/12/25 14:45 15:21 16:09 WBC RBC Hgb Hct MCV MCH MCHC RDW Plt Count MPV Immature Gran % (Auto) Neut % (Auto) Lymph % (Auto) [place] % (Auto) Eos % (Auto) Baso % (Auto) Lymph # (Auto) [place] # (Auto) Eos # (Auto) Baso # (Auto) Abs Immat Gran (auto) Absolute Neuts (auto) Absolute Nucleated RBC Nucleated RBC % (auto) Hold Purple Top VBG pH VBG pCO2 VBG pO2 VBG HCO3 VBG O2 Saturation VBG Base Excess Sodium Potassium Chloride Carbon Dioxide Anion Gap BUN Creatinine Estim Creat Clear Calc Estimated GFR POC Glucose 114 111 125 H Random Glucose Calcium Phosphorus Magnesium Total Bilirubin AST ALT Alkaline Phosphatase Total Protein Albumin Triglycerides Lipase 02/12/25 02/12/25 02/12/25 16:56 17:59 19:02 WBC RBC Hgb Hct MCV MCH MCHC RDW Plt Count MPV Immature Gran % (Auto) Neut % (Auto) Lymph % (Auto) [place] % (Auto) Eos % (Auto) Baso % (Auto) Lymph # (Auto) [place] # (Auto) Eos # (Auto) Baso # (Auto) Abs Immat Gran (auto) Absolute Neuts (auto) Absolute Nucleated RBC Nucleated RBC % (auto) Hold Purple Top VBG pH VBG pCO2 VBG pO2 VBG HCO3 VBG O2 Saturation VBG Base Excess Sodium Potassium Chloride Carbon Dioxide Anion Gap BUN Creatinine Estim Creat Clear Calc Estimated GFR POC Glucose 122 H 141 H 146 H Random Glucose Calcium Phosphorus Magnesium Total Bilirubin AST ALT Alkaline Phosphatase Total Protein Albumin Triglycerides Lipase 02/12/25 02/12/25 02/12/25 19:22 19:27 20:00 WBC RBC Hgb Hct MCV MCH MCHC RDW Plt Count MPV Immature Gran % (Auto) Neut % (Auto) Lymph % (Auto) [place] % (Auto) Eos % (Auto) Baso % (Auto) Lymph # (Auto) [place] # (Auto) Eos # (Auto) Baso # (Auto) Abs Immat Gran (auto) Absolute Neuts (auto) Absolute Nucleated RBC Nucleated RBC % (auto) Hold Purple Top SEE NOTE VBG pH VBG pCO2 VBG pO2 VBG HCO3 VBG O2 Saturation VBG Base Excess Sodium 134 L Potassium 3.2 L Chloride 101 Carbon Dioxide 23 Anion Gap 13 BUN 8 L Creatinine 0.72 Estim Creat Clear Calc 101.3 Estimated GFR > 60 POC Glucose 137 H Random Glucose 119 H Calcium 8.3 L Phosphorus 2.6 L Magnesium 1.6 Total Bilirubin AST ALT Alkaline Phosphatase Total Protein Albumin Triglycerides Lipase 02/12/25 02/12/25 02/13/25 22:13 23:55 01:52 WBC RBC Hgb Hct MCV MCH MCHC RDW Plt Count MPV Immature Gran % (Auto) Neut % (Auto) Lymph % (Auto) [place] % (Auto) Eos % (Auto) Baso % (Auto) Lymph # (Auto) [place] # (Auto) Eos # (Auto) Baso # (Auto) Abs Immat Gran (auto) Absolute Neuts (auto) Absolute Nucleated RBC Nucleated RBC % (auto) Hold Purple Top VBG pH VBG pCO2 VBG pO2 VBG HCO3 VBG O2 Saturation VBG Base Excess Sodium Potassium Chloride Carbon Dioxide Anion Gap BUN Creatinine Estim Creat Clear Calc Estimated GFR POC Glucose 128 H 127 H 139 H Random Glucose Calcium Phosphorus Magnesium Total Bilirubin AST ALT Alkaline Phosphatase Total Protein Albumin Triglycerides Lipase 02/13/25 02/13/25 02/13/25 04:10 04:58 05:01 WBC 13.7 H RBC 4.86 Hgb 14.2 Hct 40.4 L MCV 83.1 MCH 29.2 MCHC 35.1 RDW 13.0 Plt Count 170 D MPV 9.2 L Immature Gran % (Auto) 1.0 H Neut % (Auto) 86.9 H Lymph % (Auto) 4.[address] [place] % (Auto) 6.9 Eos % (Auto) 0.0 Baso % (Auto) 0.3 Lymph # (Auto) 0.[address] [place] # (Auto) 0.9 Eos # (Auto) 0.0 Baso # (Auto) 0.0 Abs Immat Gran (auto) 0.13 H Absolute Neuts (auto) 11.9 H Absolute Nucleated RBC 0.000 Nucleated RBC % (auto) 0.0 Hold Purple Top VBG pH 7.46 H VBG pCO2 32 VBG pO2 53 VBG HCO3 23 VBG O2 Saturation 86.0 VBG Base Excess 0.5 Sodium 135 Potassium 3.4 Chloride 102 Carbon Dioxide 23 Anion Gap 13 BUN 9 Creatinine 0.78 Estim Creat Clear Calc 93.5 Estimated GFR > 60 POC Glucose 152 H Random Glucose 148 H Calcium 8.5 Phosphorus 2.5 L Magnesium 1.6 Total Bilirubin 1.1 H AST 171 H ALT 117 H Alkaline Phosphatase 162 H Total Protein 6.1 L Albumin 3.3 L Triglycerides 444 H Lipase 121 H 02/13/25 06:02 WBC RBC Hgb Hct MCV MCH MCHC RDW Plt Count MPV Immature Gran % (Auto) Neut % (Auto) Lymph % (Auto) [place] % (Auto) Eos % (Auto) Baso % (Auto) Lymph # (Auto) [place] # (Auto) Eos # (Auto) Baso # (Auto) Abs Immat Gran (auto) Absolute Neuts (auto) Absolute Nucleated RBC Nucleated RBC % (auto) Hold Purple Top VBG pH VBG pCO2 VBG pO2 VBG HCO3 VBG O2 Saturation VBG Base Excess Sodium Potassium Chloride Carbon Dioxide Anion Gap BUN Creatinine Estim Creat Clear Calc Estimated GFR POC Glucose 160 H Random Glucose Calcium Phosphorus Magnesium Total Bilirubin AST ALT Alkaline Phosphatase Total Protein Albumin Triglycerides Lipase Progress Note: A&P Assessment and plan (1) Alcohol abuse: Status: Acute (2) Hypertriglyceridemia: Status: Acute (3) Pancreatitis: Status: Acute (4) CAD (coronary artery disease): Status: Acute (5) Hypertension: Status: Acute Plan Assessment: 69-year-old gentleman admitted with acute pancreatitis with hypertriglyceridemia on a background of increased alcohol consumption Plan: Neuro: No acute issues. Cardiac: No acute issues. Pulmonary: No acute issues. Renal: No acute issues. Endo: Acute pancreatitis with hypertriglyceridemia and on background of increased alcohol consumption. In his CT abdomen with no evidence of necrosis. Lipase is improving. Triglycerides in 400s. Insulin drip stopped. Pain control. GI: No acute issues. ID: No acute issues Heme/Onc: No acute issues. Psych: No acute issues. Miscellaneous: No acute issues. Prophylaxis: Heparin Diet: Clear liquids Quality Stroke Does the patient have a stroke diagnosis?: No VTE Prior VTE?: No VTE Risk Level:: Medical - moderate - high VTE Device Contraindication: Treatment Not Indicated VTE Drug Contraindication: N/A - Med Ordered
--- NOTE | 2025-02-13 12:25 | MHC.CM.PN ---
CM MET WITH PT AT BEDSIDE IN ICU. PT LIVES WITH SPOUSE AND IS FUNCTIONALLY INDEP, +DRIVES. PT STATES HIS HAS A COPY OF HIS HCP, NAMING HER. PCP ELIOT KATZ. DP: PT WILL BE DOWNGRADED TO THE MED-TELE UNIT TODAY. PT STATES HE WISHES TO SPEAK WITH A PT ADVOCATE WHEN AVAILABLE, DECLINES TO ELABORATE FURTHER. PRIMARY NURSE UPDATED ON REQUEST. [facility] WILL TRANSPORT HOME. CM WILL CONTINUE TO FOLLOW FOR ANY CHANGE TO DC PLAN/NEEDS.
[2025-02-13 13:07] LABS: Venous Blood Gas Refer to POC result
--- NOTE | 2025-02-13 13:25 | PM.EVENT ---
Event Note Date of Service: 02/14/25 Event Note: Patient will be bygyipce-67-kxle-old gentleman with underlying history of alcohol abuse, CAD, hypertension, GERD, BPH admitted on 02/12/2025 with acute on chronic abdominal pain overall ongoing for 3-4 months, but significantly worse over 2 days prior to admission. On ER evaluation patient with moderate epigastric tenderness with evidence of pancreatitis on laboratory studies and imaging, but no evidence of necrosis. Also noted to have significant hypertriglyceridemia. Patient started on insulin drip, IV fluid support, and parenteral pain medications and admitted to the intensive care unit: With above supportive care triglyceride is are improving off insulin drip as well as downgraded to the medical floor. Patient seen and examined-still has nausea /abd pain Physical exam and assessment andplan unchanged- please see icu note Time Spent With Patient Time: Total time managing care of this patient today ____ minutes.
[2025-02-13] MEDS: Isosorbide Mononitrate 30 MG TAB.ER.24H PO (14:21)
[2025-02-13] MEDS: Multivitamin TABLET 1 TAB PO (14:21)
[2025-02-13] MEDS: Omeprazole 20 MG CAPSULE.DR PO (14:21)
[2025-02-13 15:48] LABS: Glucose, Whole Blood 143 mg/dL (60-115)
[2025-02-13 16:09] LABS: Estimated Average Glucose 111 mg/dL; Hemoglobin A1C 133.2613 umol/L; Hemoglobin A1c % 5.5 % (<6.0); Total Hemoglobin (HGBA1C) 3687.2695 umol/L
[2025-02-13] MEDS: oxyCODONE HCl Immed Release 5 MG TABLET 7.5 MG PO (16:10)
[2025-02-13 20:00] LABS: Glucose, Whole Blood 136 mg/dL (60-115)
[2025-02-13] MEDS: Tamsulosin HCL 0.4 MG CAPSULE 0.8 MG PO (20:26)
[2025-02-13] MEDS: carvediloL 6.25 MG TABLET PO (20:27)
[2025-02-13] MEDS: clonazePAM 0.5 MG TABLET PO (20:28)
[2025-02-14] MEDS: oxyCODONE HCl Immed Release 5 MG TABLET 7.5 MG PO ×3 (02:05→16:21)
[2025-02-14] MEDS: Heparin Sodium,Porcine 5,000 UNIT/ML VIAL 5000 UNIT SUBCUT ×3 (02:07→16:22)
[2025-02-14 04:00] VITALS: BP 101/67; PULSE 77; RESP 17; TEMP 36.3; O2SAT 95
[2025-02-14 06:30] VITALS: BMI 27.4
[2025-02-14 07:02] VITALS: BP 128/75; PULSE 89; RESP 16; TEMP 37.2; O2SAT 94
[2025-02-14 07:22] LABS: MANUAL DIFF FLAG NO
[2025-02-14 07:25] LABS: Basophils Percent Auto 0.3 % (0-2); Eosinophils Absolute Auto 0.1 X10*3/uL (0.0-0.4); Eosinophils Percent Auto 0.7 % (0-4); Hematocrit 34.7 % (42.0-52.0); Hemoglobin 12.1 g/dl (14.0-18.0); Imm Gran Abs Auto 0.05 X10*3/uL (0.00-0.03); Imm Gran Pct Auto 0.6 % (0.0-0.4); Lymphocytes Absolute Auto 0.8 X10*3/uL (1.2-4.9); Lymphocytes Percent Auto 8.6 % (20-40); Mean Corpuscular HGB Conc 34.9 g/dl (31.0-36.0); Mean Corpuscular Hemoglobin 29.6 pg (27.0-33.0); Mean Corpuscular Volume 84.8 fL (80.0-98.0); Mean Platelet Volume 9.6 fL (9.4-12.4); Monocytes Absolute Auto 0.7 X10*3/uL (0.1-1.2); Monocytes Percent Auto 8.1 % (2-11); Neutrophils Absolute Auto 7.3 x10*3/uL (2.0-8.3); Neutrophils Percent Auto 81.7 % (45-73); Platelet Count 172 X10*3/uL (160-400); Red Blood Count 4.09 X10*6/uL (4.60-5.80); Red Cell Distribution Width 13.6 % (11.0-16.0)
[2025-02-14 07:54] LABS: Anion Gap 12 (12-20); Blood Urea Nitrogen 12 mg/dL (9-16); Calcium 8.9 mg/dL (8.4-10.2); Carbon Dioxide 25 mmol/L (22-29); Chloride 102 mmol/L (96-108); Creatinine Clr Calc Pharmacy 94.8; Estimated Glomerular Filt Rate > 60; Glucose Random 113 mg/dL (60-115); Magnesium 1.9 mg/dL (1.6-2.6); Phosphorus 1.8 mg/dL (2.7-4.5); Potassium 3.6 mmol/L (3.3-5.1); Sodium 135 mmol/L (135-145)
[2025-02-14 08:00] LABS: Glucose, Whole Blood 138 mg/dL (60-115)
[2025-02-14] MEDS: Multivitamin TABLET 1 TAB PO (08:11)
[2025-02-14] MEDS: clonazePAM 0.5 MG TABLET PO ×2 (08:11→20:03)
[2025-02-14] MEDS: Clopidogrel Bisulfate 75 MG TABLET PO (08:11)
[2025-02-14] MEDS: carvediloL 6.25 MG TABLET PO ×2 (08:11→20:02)
[2025-02-14] MEDS: amLODIPine Besylate 5 MG TABLET PO (08:11)
[2025-02-14] MEDS: FLUoxetine HCl 20 MG CAPSULE 80 MG PO (08:11)
[2025-02-14] MEDS: Isosorbide Mononitrate 30 MG TAB.ER.24H PO (08:12)
[2025-02-14] MEDS: gemfibroziL 600 MG TABLET PO ×2 (09:31→16:21)
[2025-02-14] MEDS: Lactated Ringers 1,000 ML 100 ML IVCONT ×2 (09:32→20:03)
[2025-02-14] MEDS: HYDROmorphone HCl 1 MG/ML SYRINGE IVPUSH ×4 (09:33→20:02)
[2025-02-14 09:50] LABS: Alanine Aminotransferase 64 U/L (0-40); Alkaline Phosphatase 136 U/L (39-117); Aspartate Amino Transferase 52 U/L (5-37); Bilirubin Direct 0.3 mg/dL (0.0-0.5); Bilirubin Total 0.7 mg/dL (0.0-1.0); Total Protein 6.1 g/dL (6.5-8.0)
[2025-02-14 10:50] VITALS: BP 124/76; PULSE 78; RESP 16; TEMP 36.4; O2SAT 95
[2025-02-14 11:19] LABS: Glucose, Whole Blood 148 mg/dL (60-115)
--- NOTE | 2025-02-14 13:06 | P.PNIM_ITS ---
Subjective Subjective Date of Service: 02/14/25 Interval History: pancreatitis Review of Systems has abd pain even with clears has some nausea Review of Systems: Yes all other systems are reviewed and are negative Physical Exam 2 Vital Signs: Vital Signs: Last Vital Signs Temp 97.5 F 02/14/25 10:50 Pulse 78 02/14/25 10:50 Resp 16 02/14/25 10:50 BP 124/76 02/14/25 10:50 Pulse Ox 95 02/14/25 10:50 O2 Del Method Room Air 02/14/25 10:50 BMI result Body Mass Index 27.4 Appearance: Alert.? Oriented X3.? cvs: rrr, [id number]. res: clear to auscultation ,no rhonchii or wheezing abd: no rebound or guarding ,epigastric discomfort, bs present. ext pulses present , no cyanosis . neuro: axo3 , nonfocal. Objective Data Active Medications Amlodipine Besylate (Amlodipine Besylate 5 Mg Tablet) 5 mg PO DAILY [facility]; Protocol Last Admin: 02/14/25 08:11 Dose: 5 mg Documented By: CA Carvedilol (Carvedilol 6.25 Mg Tablet) 6.25 mg PO BID [facility]; Protocol Last Admin: 02/14/25 08:11 Dose: 6.25 mg Documented By: CA Clonazepam (Clonazepam 0.5 Mg Tablet) 0.5 mg PO BID [facility] Last Admin: 02/14/25 08:11 Dose: 0.5 mg Documented By: CA Clopidogrel Bisulfate (Clopidogrel Bisulfate 75 Mg Tablet) 75 mg PO DAILY [facility] Last Admin: 02/14/25 08:11 Dose: 75 mg Documented By: CA Fluoxetine HCl (Fluoxetine Hcl 20 Mg Capsule) 80 mg PO DAILY [facility] Last Admin: 02/14/25 08:11 Dose: 80 mg Documented By: CA [facility]fib[facility] ([facility] 600 Mg [facility]) [facility] Last Admin: 02/14/25 09:31 Dose: 600 mg Documented By: CA Heparin Sodium (Porcine) (Heparin Sodium,Porcine 5,000 Unit/Ml Vial) 5,000 unit SUBCUT Q8H [facility] Last Admin: 02/14/25 08:12 Dose: 5,000 unit Documented By: CA Hydromorphone HCl (Hydromorphone Hcl 1 Mg/Ml Syringe) 1 mg IVPUSH Q2H PRN; Protocol PRN Reason: Pain, Severe (Pain Scale 7-10) Last Admin: 02/14/25 09:33 Dose: 1 mg Documented By: CA Lactated Ringer's (Lr) 1,000 mls @ 100 mls/hr IVCONT .Q10H [facility] Last Admin: 02/14/25 09:32 Dose: 100 mls/hr Documented By: CA Isosorbide Mononitrate (Isosorbide Mononitrate 30 Mg Tab.Er.24h) 30 mg PO DAILY [facility]; Protocol Last Admin: 02/14/25 08:12 Dose: 30 mg Documented By: CA Mirtazapine (Mirtazapine 7.5 Mg Tablet) 7.5 mg PO BEDTIME PRN PRN Reason: insomnia Multivitamins/Vitamin C (Multivitamin Tablet) 1 tab PO DAILY [facility] Last Admin: 02/14/25 08:11 Dose: 1 tab Documented By: CA Nitroglycerin (Nitroglycerin 0.4 Mg Tab.Subl) 0.4 mg SUBLINGUAL Q5M PRN PRN Reason: CHEST PAIN Omeprazole (Omeprazole 20 Mg Capsule.Dr) 20 mg PO DAILY@0630 [facility] Last Admin: 02/14/25 06:17 Dose: Not Given Documented By: LISA Non-Admin Reason: Patient Refused Ondansetron HCl (Ondansetron Hcl 4 Mg/2 Ml Vial) 4 mg IVPUSH Q6H PRN PRN Reason: Nausea and Vomiting Last Admin: 02/13/25 20:21 Dose: 4 mg Documented By: LISA Oxycodone HCl (Oxycodone Hcl Immed Release 5 Mg Tablet) 7.5 mg PO QID PRN PRN Reason: Pain, Moderate(Pain Scale 4-6) Last Admin: 02/14/25 08:12 Dose: 7.5 mg Documented By: CA Tamsulosin HCl (Tamsulosin Hcl 0.4 Mg Capsule) 0.8 mg PO BEDTIME [facility] Last Admin: 02/13/25 20:26 Dose: 0.8 mg Documented By: LISA Labs 02/14/25 06:35 02/14/25 06:35 Labs: Laboratory Results - last 24 hr 02/13/25 02/13/25 02/13/25 04:58 15:44 19:57 MCV MCH MCHC RDW Plt Count MPV Immature Gran % (Auto) Neut % (Auto) Lymph % (Auto) [place] % (Auto) Eos % (Auto) Baso % (Auto) Lymph # (Auto) [place] # (Auto) Eos # (Auto) Baso # (Auto) Abs Immat Gran (auto) Absolute Neuts (auto) Absolute Nucleated RBC Nucleated RBC % (auto) Anion Gap Estim Creat Clear Calc Estimated GFR POC Glucose 143 H 136 H Random Glucose Estimat Average Glucose 111 Hemoglobin A1c % 5.5 Calcium Phosphorus Magnesium Total Bilirubin Direct Bilirubin AST ALT Alkaline Phosphatase Total Protein Albumin 02/14/25 02/14/25 02/14/25 06:35 07:49 11:16 MCV 84.8 MCH 29.6 MCHC 34.9 RDW 13.6 Plt Count 172 MPV 9.6 Immature Gran % (Auto) 0.6 H Neut % (Auto) 81.7 H Lymph % (Auto) 8.6 L [place] % (Auto) 8.1 Eos % (Auto) 0.7 Baso % (Auto) 0.3 Lymph # (Auto) 0.8 L [place] # (Auto) 0.7 Eos # (Auto) 0.1 Baso # (Auto) 0.0 Abs Immat Gran (auto) 0.05 H Absolute Neuts (auto) 7.3 Absolute Nucleated RBC 0.000 Nucleated RBC % (auto) 0.0 Anion Gap 12 Estim Creat Clear Calc 94.8 Estimated GFR > 60 POC Glucose 138 H 148 H Random Glucose 113 Estimat Average Glucose Hemoglobin A1c % Calcium 8.9 Phosphorus 1.8 L Magnesium 1.9 Total Bilirubin 0.7 Direct Bilirubin 0.3 AST 52 H ALT 64 H Alkaline Phosphatase 136 H Total Protein 6.1 L Albumin 3.0 L Assessment and Plan (1) CAD (coronary artery disease): Status: Acute (2) Pancreatitis: Status: Acute Plan 69 y/o M BPH ,CAD ,Chronic low back pain,Erectile dysfunction,WOLF ,GERD ,Hypertension,Insomnia,[place]aju[employer] use,depression,Sleep apnea-admitted for acute pancreatitis and hypertriglyceridemia. Acute pancreatitis with hypertriglyceridemia: Patient was started on insulin drip, IV fluid support, and parenteral pain medications and admitted to the intensive care unit: With above supportive care triglyceride is are improving off insulin drip. Abdominal pain seems to improving, still nauseated even with a clear liquid diet. Continue IV fluid, antiemetic and IV pain medication Dilaudid. CAD: Continue statin, Plavix, Imdur, beta-jeff Hypotension: Continue Coreg/amlodipine/lisinopril As per patient alcohol use: Monitor CIWA, thiamine folic acid Anxiety/depression: Continue home clonazepam. BPH: On Flomax nora: will check if uses cpap Ongoing need of stay: Acute pancreatitis-neither hydration, IV pain medication, still unable to tolerate regular diet. Quality Stroke Does the patient have a stroke diagnosis?: No VTE Prior VTE?: No VTE Risk Level:: Medical - moderate - high VTE Device Contraindication: Treatment Not Indicated VTE Drug Contraindication: N/A - Med Ordered
[2025-02-14] MEDS: Folic Acid 1 MG TABLET PO (13:26)
[2025-02-14] MEDS: Thiamine HCL 100 MG TABLET PO (13:26)
[2025-02-14 15:56] VITALS: BP 123/70; PULSE 80; RESP 18; TEMP 36.1; O2SAT 95
[2025-02-14 16:11] LABS: Glucose, Whole Blood 128 mg/dL (60-115)
[2025-02-14 19:46] VITALS: BP 135/78; PULSE 83; RESP 20; TEMP 36.4; O2SAT 97
[2025-02-14 20:02] VITALS: RESP 18
[2025-02-14] MEDS: Tamsulosin HCL 0.4 MG CAPSULE 0.8 MG PO (20:02)
[2025-02-14 20:39] LABS: Glucose, Whole Blood 112 mg/dL (60-115)
[2025-02-15] VITALS (7 sets, daily range): BP systolic 93–163; BP diastolic 58–82; PULSE 77–90; RESP 18–20; TEMP 36.4–37.3; O2SAT 93–96
[2025-02-15] MEDS: HYDROmorphone HCl 1 MG/ML SYRINGE IVPUSH ×6 (02:36→23:59)
[2025-02-15] MEDS: Heparin Sodium,Porcine 5,000 UNIT/ML VIAL 5000 UNIT SUBCUT ×4 (02:36→23:59)
[2025-02-15] MEDS: oxyCODONE HCl Immed Release 5 MG TABLET 7.5 MG PO ×4 (04:05→22:40)
[2025-02-15] MEDS: Omeprazole 20 MG CAPSULE.DR PO (06:12)
[2025-02-15 07:31] LABS: Glucose, Whole Blood 93 mg/dL (60-115)
--- NOTE | 2025-02-15 08:04 | HO.PM.IMPN ---
Subjective Subjective Date of Service: 02/15/25 Interval History: pancreatitis Review of Systems abd pain Review of Systems: Yes all other systems are reviewed and are negative Physical Exam Vital Signs: Vital Signs: Last Vital Signs Temp 99.2 F 02/15/25 07:38 Pulse 90 02/15/25 07:38 Resp 20 02/15/25 07:38 BP 163/81 H 02/15/25 07:38 Pulse Ox 96 02/15/25 07:38 O2 Del Method Room Air 02/15/25 07:38 BMI result Body Mass Index 27.4 Appearance: Alert.? Oriented X3.? cvs: rrr, [id number]. res: clear to auscultation ,no rhonchii or wheezing abd: no rebound or guarding ,epigastric discomfort, bs present. ext pulses present , no cyanosis . neuro: axo3 , nonfocal. Objective Data Active Medications Amlodipine Besylate (Amlodipine Besylate 5 Mg Tablet) 5 mg PO DAILY [facility]; Protocol Last Admin: 02/14/25 08:11 Dose: 5 mg Documented By: CA Carvedilol (Carvedilol 6.25 Mg Tablet) 6.25 mg PO BID [facility]; Protocol Last Admin: 02/14/25 20:02 Dose: 6.25 mg Documented By: AWA Clonazepam (Clonazepam 0.5 Mg Tablet) 0.5 mg PO BID [facility] Last Admin: 02/14/25 20:03 Dose: 0.5 mg Documented By: AWA Clopidogrel Bisulfate (Clopidogrel Bisulfate 75 Mg Tablet) 75 mg PO DAILY [facility] Last Admin: 02/14/25 08:11 Dose: 75 mg Documented By: CA Fluoxetine HCl (Fluoxetine Hcl 20 Mg Capsule) 80 mg PO DAILY [facility] Last Admin: 02/14/25 08:11 Dose: 80 mg Documented By: CA Folic Acid (Folic Acid 1 Mg Tablet) 1 mg PO DAILY [facility] Last Admin: 02/14/25 13:26 Dose: 1 mg Documented By: CA [facility]fibrozil ([facility] 600 Mg Table[facility]) [facility] Last Admin: 02/14/25 16:21 Dose: 600 mg Documented By: CA Heparin Sodium (Porcine) (Heparin Sodium,Porcine 5,000 Unit/Ml Vial) 5,000 unit SUBCUT Q8H [facility] Last Admin: 02/15/25 02:36 Dose: 5,000 unit Documented By: AWA Hydromorphone HCl (Hydromorphone Hcl 1 Mg/Ml Syringe) 1 mg IVPUSH Q2H PRN; Protocol PRN Reason: Pain, Severe (Pain Scale 7-10) Last Admin: 02/15/25 02:36 Dose: 1 mg Documented By: AWA Lactated Ringer's (Lr) 1,000 mls @ 100 mls/hr IVCONT .Q10H [facility] Last Admin: 02/15/25 06:08 Dose: Not Given Documented By: AWA Non-Admin Reason: IV Running Isosorbide Mononitrate (Isosorbide Mononitrate 30 Mg Tab.Er.24h) 30 mg PO DAILY [facility]; Protocol Last Admin: 02/14/25 08:12 Dose: 30 mg Documented By: CA Lisinopril (Lisinopril 5 Mg Tablet) 5 mg PO DAILY [facility]; Protocol Mirtazapine (Mirtazapine 7.5 Mg Tablet) 7.5 mg PO BEDTIME PRN PRN Reason: insomnia Multivitamins/Vitamin C (Multivitamin Tablet) 1 tab PO DAILY [facility] Last Admin: 02/14/25 08:11 Dose: 1 tab Documented By: CA Nitroglycerin (Nitroglycerin 0.4 Mg Tab.Subl) 0.4 mg SUBLINGUAL Q5M PRN PRN Reason: CHEST PAIN Omeprazole (Omeprazole 20 Mg Capsule.Dr) 20 mg PO DAILY@0630 [facility] Last Admin: 02/15/25 06:12 Dose: 20 mg Documented By: AWA Ondansetron HCl (Ondansetron Hcl 4 Mg/2 Ml Vial) 4 mg IVPUSH Q6H PRN PRN Reason: Nausea and Vomiting Last Admin: 02/13/25 20:21 Dose: 4 mg Documented By: LISA Oxycodone HCl (Oxycodone Hcl Immed Release 5 Mg Tablet) 7.5 mg PO QID PRN PRN Reason: Pain, Moderate(Pain Scale 4-6) Last Admin: 02/15/25 04:05 Dose: 7.5 mg Documented By: AWA Tamsulosin HCl (Tamsulosin Hcl 0.4 Mg Capsule) 0.8 mg PO BEDTIME [facility] Last Admin: 02/14/25 20:02 Dose: 0.8 mg Documented By: AWA Thiamine HCl (Thiamine Hcl 100 Mg Tablet) 100 mg PO DAILY [facility] Last Admin: 02/14/25 13:26 Dose: 100 mg Documented By: CA Labs 02/14/25 06:35 02/14/25 06:35 Labs: Laboratory Results - last 24 hr 02/14/25 02/14/25 02/14/25 06:35 11:16 15:42 POC Glucose 148 H 128 H Total Bilirubin 0.7 Direct Bilirubin 0.3 AST 52 H ALT 64 H Alkaline Phosphatase 136 H Total Protein 6.1 L Albumin 3.0 L 02/14/25 02/15/25 20:35 07:27 POC Glucose 112 93 Total Bilirubin Direct Bilirubin AST ALT Alkaline Phosphatase Total Protein Albumin Assessment and Plan (1) CAD (coronary artery disease): Status: Acute (2) Pancreatitis: Status: Acute Plan 69 y/o M BPH ,CAD ,Chronic low back pain,Erectile dysfunction,WOLF ,GERD ,Hypertension,Insomnia,Marajuana use,depression,Sleep apnea-admitted for acute pancreatitis and hypertriglyceridemia. Acute pancreatitis with hypertriglyceridemia: Patient was started on insulin drip, IV fluid support, and parenteral pain medications and admitted to the intensive care unit: With above supportive care triglyceride is are improving off insulin drip. Abdominal pain seems to improving, still nauseated even with a clear liquid diet. Continue IV fluid, antiemetic and IV pain medication Dilaudid. CAD: Continue statin, Plavix, Imdur, beta-jeff Hypotension: Continue Coreg/amlodipine/lisinopril As per patient alcohol use: Monitor CIWA, thiamine folic acid Anxiety/depression: Continue home clonazepam. BPH: On Flomax nora: noncomplaint cpap. Ongoing need of stay: Acute pancreatitis-neither hydration, IV pain medication, still unable to tolerate regular diet. Quality Stroke Does the patient have a stroke diagnosis?: No VTE Prior VTE?: No VTE Risk Level:: Medical - moderate - high VTE Device Contraindication: Treatment Not Indicated VTE Drug Contraindication: N/A - Med Ordered
[2025-02-15] MEDS: Thiamine HCL 100 MG TABLET PO (08:30)
[2025-02-15] MEDS: Folic Acid 1 MG TABLET PO (08:30)
[2025-02-15] MEDS: FLUoxetine HCl 20 MG CAPSULE 80 MG PO (08:30)
[2025-02-15] MEDS: clonazePAM 0.5 MG TABLET PO ×2 (08:30→20:35)
[2025-02-15] MEDS: Multivitamin TABLET 1 TAB PO (08:31)
[2025-02-15] MEDS: gemfibroziL 600 MG TABLET PO ×2 (08:31→16:35)
[2025-02-15] MEDS: Isosorbide Mononitrate 30 MG TAB.ER.24H PO (08:31)
[2025-02-15] MEDS: carvediloL 6.25 MG TABLET PO ×2 (08:31→20:35)
[2025-02-15] MEDS: Clopidogrel Bisulfate 75 MG TABLET PO (08:31)
[2025-02-15] MEDS: lisinopriL 5 MG TABLET PO (08:31)
[2025-02-15] MEDS: amLODIPine Besylate 5 MG TABLET PO (08:31)
[2025-02-15 11:30] LABS: Glucose, Whole Blood 130 mg/dL (60-115)
--- NOTE | 2025-02-15 12:05 | MHC.CM.PN ---
Step down from ICU yesterday. Per MD rounds patient is not tolerating diet. XRAY ordered for c/o rt side rib pain. DP Home self care. Patient spouse will provide transport home.
[2025-02-15] MEDS: Lactated Ringers 1,000 ML 100 ML IVCONT ×2 (12:30→22:42)
[2025-02-15 16:23] LABS: Glucose, Whole Blood 98 mg/dL (60-115)
[2025-02-15 20:21] LABS: Glucose, Whole Blood 143 mg/dL (60-115)
[2025-02-15] MEDS: Tamsulosin HCL 0.4 MG CAPSULE 0.8 MG PO (20:35)
[2025-02-16] VITALS (9 sets, daily range): BP systolic 97–146; BP diastolic 57–82; PULSE 60–82; RESP 14–20; TEMP 35.9–37.5; O2SAT 94–97
[2025-02-16] MEDS: HYDROmorphone HCl 1 MG/ML SYRINGE IVPUSH ×6 (03:07→18:59)
--- NOTE | 2025-02-16 03:26 | PC.NURSE ---
Addendum entered by Susana Paul RN 02/16/25 03:30: MD Jose robert. Original Note: Pt self-removed R wrist IV and is refusing IV fluids at this time. Pt also took off tele pack but is amenable to replacing stickers and resuming tele monitoring.
[2025-02-16] MEDS: oxyCODONE HCl Immed Release 5 MG TABLET 7.5 MG PO (05:19)
[2025-02-16] MEDS: Omeprazole 20 MG CAPSULE.DR PO (05:19)
[2025-02-16] MEDS: gemfibroziL 600 MG TABLET PO ×2 (06:39→16:37)
[2025-02-16 07:29] LABS: Glucose, Whole Blood 111 mg/dL (60-115)
--- NOTE | 2025-02-16 07:48 | P.CNGI_ITS ---
History of Present Illness Data of Consult Service Date: 02/16/25 Requesting physician: Aidan Ríos Primary Care Provider: ELISA Aguirre HPI Reason for consult: Acute pancreatitis 69 y/o M BPH ,CAD ,Chronic low back pain,Erectile dysfunction,WOLF ,GERD ,Hypertension,Insomnia, marijuana use,depression, ELADIO who presented to the hospital for severe abd pain and found to have acute pancreatitis in the setting of etOH use and hypertriglyceridemia. Today is hospital day 4. Patient seen at bedside. Reports that 2 days prior to admission, he had sudden worsening of chronic epigastric pain with nausea, vomiting inability to tolerate p.o.. This was in the setting of drinking 5-6 beers every day for the past 2 months. When he presented to the emergency room, he was found to be tachycardic with labs suggestive of acute interstitial pancreatitis. CT abdomen and pelvis with IV contrast on 02/12 shows peripancreatic inflammation specially in the tail, which tracks down the spleen. This also showed mild hepatomegaly with steatosis. Patient was also noted to have hypertriglyceridemia with initial triglycerides close 2000, dropped to 444 after 24 hours of insulin drip. He has been started on gemfibrozil 600 mg twice a day. Patient reports improvement in epigastric pain, and has been tolerating diet. However, states that since this morning, pain is now more severe in his back and goes down to his right hip. Severe enough to hinder walking in going to the bathroom. Last bowel movement was 2 days ago. Up-to-date on colon cancer screening, last colonoscopy 6 years ago at [facility]. Review of Systems 2 Review of Systems: Yes all other systems are reviewed and are negative [facility] Social History Social History Household Members: Spouse Housing: House Do you presently have visiting nurse or other home services: No Alcohol intake: current Alcohol intake frequency: 3 or more drinks per day Alcohol type: beer Patient Tobacco Use Status: Former Tobacco user Smoked in Last 30 Days: No Use of substances other than those prescribed or required for medical reasons: No Currently Displaying Signs/Symptoms of Drug Intoxication Withdrawal: No Have you been hit, kicked, punched, or otherwise hurt by someone within the past year? If so, by whom?: No Do you feel safe in your current relationship?: Yes Is there a partner from a previous relationship who is making you feel unsafe now?: No Are you made to feel afraid or neglected: No Advance Directives: No Advance Directives Information Provided: Yes Do you have a plan to hurt others: No Plan Recently lost weight without trying: No Nutrition Risks: No Nutritional Risk Poor oral hygiene: No service: No Meds Allergies Allergy/AdvReac Type Severity Reaction Status Date / Time No Known Allergies Allergy Verified 02/12/25 02:02 Active Medications: Current Medications Amlodipine Besylate (Amlodipine Besylate 5 Mg Tablet) 5 mg PO DAILY [facility]; Protocol Last Admin: 02/15/25 08:31 Dose: 5 mg Carvedilol (Carvedilol 6.25 Mg Tablet) 6.25 mg PO BID [facility]; Protocol Last Admin: 02/15/25 20:35 Dose: 6.25 mg Clonazepam (Clonazepam 0.5 Mg Tablet) 0.5 mg PO BID [facility] Last Admin: 02/15/25 20:35 Dose: 0.5 mg Clopidogrel Bisulfate (Clopidogrel Bisulfate 75 Mg Tablet) 75 mg PO DAILY [facility] Last Admin: 02/15/25 08:31 Dose: 75 mg Fluoxetine HCl (Fluoxetine Hcl 20 Mg Capsule) 80 mg PO DAILY [facility] Last Admin: 02/15/25 08:30 Dose: 80 mg Folic Acid (Folic Acid 1 Mg Tablet) 1 mg PO DAILY [facility] Last Admin: 02/15/25 08:30 Dose: 1 mg Gemfibrozil (Gemfibrozil 600 Mg Tablet) 600 mg PO BIDAC [facility] Last Admin: 02/16/25 06:39 Dose: 600 mg Heparin Sodium (Porcine) (Heparin Sodium,Porcine 5,000 Unit/Ml Vial) 5,000 unit SUBCUT Q8H [facility] Last Admin: 02/15/25 23:59 Dose: 5,000 unit Hydromorphone HCl (Hydromorphone Hcl 1 Mg/Ml Syringe) 1 mg IVPUSH Q2H PRN; Protocol PRN Reason: Pain, Severe (Pain Scale 7-10) Last Admin: 02/16/25 06:44 Dose: 1 mg Isosorbide Mononitrate (Isosorbide Mononitrate 30 Mg Tab.Er.24h) 30 mg PO DAILY [facility]; Protocol Last Admin: 02/15/25 08:31 Dose: 30 mg Lisinopril (Lisinopril 5 Mg Tablet) 5 mg PO DAILY [facility]; Protocol Last Admin: 02/15/25 08:31 Dose: 5 mg Mirtazapine (Mirtazapine 7.5 Mg Tablet) 7.5 mg PO BEDTIME PRN PRN Reason: insomnia Multivitamins/Vitamin C (Multivitamin Tablet) 1 tab PO DAILY [facility] Last Admin: 02/15/25 08:31 Dose: 1 tab Nitroglycerin (Nitroglycerin 0.4 Mg Tab.Subl) 0.4 mg SUBLINGUAL Q5M PRN PRN Reason: CHEST PAIN Omeprazole (Omeprazole 20 Mg Capsule.Dr) 20 mg PO DAILY@0630 [facility] Last Admin: 02/16/25 05:19 Dose: 20 mg Ondansetron HCl (Ondansetron Hcl 4 Mg/2 Ml Vial) 4 mg IVPUSH Q6H PRN PRN Reason: Nausea and Vomiting Last Admin: 02/13/25 20:21 Dose: 4 mg Oxycodone HCl (Oxycodone Hcl Immed Release 5 Mg Tablet) 7.5 mg PO QID PRN PRN Reason: Pain, Moderate(Pain Scale 4-6) Last Admin: 02/16/25 05:19 Dose: 7.5 mg Tamsulosin HCl (Tamsulosin Hcl 0.4 Mg Capsule) 0.8 mg PO BEDTIME [facility] Last Admin: 02/15/25 20:35 Dose: 0.8 mg Thiamine HCl (Thiamine Hcl 100 Mg Tablet) 100 mg PO DAILY [facility] Last Admin: 02/15/25 08:30 Dose: 100 mg Home Medications ?Medication ?Instructions ?Recorded ?Confirmed ?Last Taken ?Type amlodipine 5 mg tablet 5 mg PO DAILY 02/12/25 02/12/25 02/11/25 History carvedilol 6.25 mg tablet 6.25 mg PO BID 02/12/25 02/12/25 02/11/25 History clonazepam 0.5 mg tablet 0.5 mg PO BID 02/12/25 02/12/25 02/11/25 History clopidogrel 75 mg tablet 75 mg PO DAILY 02/12/25 02/12/25 02/11/25 History fluoxetine 40 mg capsule 80 mg PO DAILY 02/12/25 02/12/25 02/11/25 History isosorbide mononitrate 30 mg 30 mg PO QAM 0502/12/25 02/11/25 History tablet,extended release 24 hr lisinopril 5 mg tablet 5 mg PO DAILY 02/12/25 02/12/25 02/11/25 History mirtazapine 15 mg tablet 7.5 mg PO BEDTIME PRN insomnia 02/12/25 02/12/25 Unknown History multivitamin 1 tab PO DAILY 02/12/25 02/12/25 02/11/25 History nitroglycerin 0.4 mg sublingual 0.4 mg sublingual NEEDED angina 02/12/25 02/12/25 Unknown History tablet omeprazole 20 mg capsule,delayed 20 mg PO DAILY 02/12/25 02/12/25 02/11/25 History release oxycodone-acetaminophen 5 mg-325 1.5 tab PO QID PRN pain 02/12/25 02/12/25 02/11/25 History mg tablet sildenafil 100 mg tablet 100 mg PO DAILY 02/12/25 02/12/25 02/11/25 History simvastatin 40 mg tablet 40 mg PO BEDTIME 02/12/25 02/12/25 02/11/25 History tamsulosin 0.4 mg capsule 0.8 mg PO BEDTIME 02/12/25 02/12/25 02/11/25 History Physical Exam 2 Vital Signs: Vital Signs: Last Vital Signs Temp 98.1 F 02/16/25 07:34 Pulse 81 02/16/25 07:34 Resp 20 02/16/25 07:34 BP 146/78 H 02/16/25 07:34 Pulse Ox 94 02/16/25 07:34 O2 Del Method Room Air 02/16/25 07:34 BMI result Body Mass Index 27.4 Anteriorly gentleman Appears older than stated age Nonicteric Abdomen soft, nontender, nondistended Significant tenderness to palpation right flank Mild lower extremity edema Results Labs 02/14/25 06:35 02/16/25 07:11 Assessment and Plan (1) Pancreatitis: Status: Acute (2) Hypertriglyceridemia: Status: Acute (3) Alcohol abuse: Status: Acute Plan Pt with acute interstitial pancreatitis, given change in location and character of pain this morning, consider repeat contrasted imaging to rule out peripancreatic fluid or necrotizing pancreatitis. In terms of etiology of AIP, patient was counseled that in the absence of family history of hypertriglyceridemia, excess alcohol intake can also predispose to hypertriglyceridemia. Recommend alcohol abstinence, and dietary control. Foods with low glycemic index encouraged. In addition, he should also see endocrinology as outpatient for further evaluation and longitudinal management. Plan: -CT abdomen and pelvis with IV contrast -Counseling for etOH abstinence. -Consider addiction medicine consultation -Low glycemic index diet -check complete lipid panel to assess utility of adding statin therapy -outpatient endocrinology referral Thank you for allowing me to participate in his care. Please do not hesitate to reach out for any questions or concerns. Procedures Date of Service Date of Service: 02/16/25
[2025-02-16 07:49] LABS: Alanine Aminotransferase 92 U/L (0-40); Alkaline Phosphatase 288 U/L (39-117); Anion Gap 12 (12-20); Aspartate Amino Transferase 123 U/L (5-37); Blood Urea Nitrogen 7 mg/dL (9-16); Calcium 8.9 mg/dL (8.4-10.2); Carbon Dioxide 24 mmol/L (22-29); Chloride 99 mmol/L (96-108); Creatinine Clr Calc Pharmacy 102.8; Estimated Glomerular Filt Rate > 60; Glucose Random 106 mg/dL (60-115); Lipase 170 U/L (8-78); Potassium 3.2 mmol/L (3.3-5.1); Sodium 132 mmol/L (135-145); Total Protein 6.2 g/dL (6.5-8.0)
[2025-02-16] MEDS: Lidocaine 4 % Patch ADH..PATCH 2 PATCH TRANSDERMA (09:06)
[2025-02-16] MEDS: Clopidogrel Bisulfate 75 MG TABLET PO (09:07)
[2025-02-16] MEDS: Heparin Sodium,Porcine 5,000 UNIT/ML VIAL 5000 UNIT SUBCUT ×2 (09:07→16:37)
[2025-02-16] MEDS: Thiamine HCL 100 MG TABLET PO (09:08)
[2025-02-16] MEDS: carvediloL 6.25 MG TABLET PO ×2 (09:08→21:59)
[2025-02-16] MEDS: NaPROXEN 500 MG TABLET PO (09:08)
[2025-02-16] MEDS: FLUoxetine HCl 20 MG CAPSULE 80 MG PO (09:08)
[2025-02-16] MEDS: oxyCODONE HCl Immed Release 5 MG TABLET 10 MG PO ×4 (09:08→22:00)
[2025-02-16] MEDS: Isosorbide Mononitrate 30 MG TAB.ER.24H PO (09:08)
[2025-02-16] MEDS: Multivitamin TABLET 1 TAB PO (09:08)
[2025-02-16] MEDS: lisinopriL 5 MG TABLET PO (09:08)
[2025-02-16] MEDS: clonazePAM 0.5 MG TABLET PO ×2 (09:08→22:01)
[2025-02-16] MEDS: Folic Acid 1 MG TABLET PO (09:08)
[2025-02-16] MEDS: amLODIPine Besylate 5 MG TABLET PO (09:08)
[2025-02-16 11:23] LABS: Glucose, Whole Blood 122 mg/dL (60-115)
[2025-02-16 15:49] LABS: Glucose, Whole Blood 133 mg/dL (60-115)
[2025-02-16] MEDS: iohexoL 350 MG/ML 100 ML INFUS..BTL IV (19:28)
[2025-02-16 20:51] LABS: Glucose, Whole Blood 125 mg/dL (60-115)
[2025-02-16] MEDS: Potassium Chloride ER 20 MEQ TAB.ER.PRT PO (22:00)
[2025-02-16] MEDS: Tamsulosin HCL 0.4 MG CAPSULE 0.8 MG PO (22:01)
--- NOTE | 2025-02-16 22:59 | PM.EVENT ---
Event Note Date of Service: 02/16/25 Event Note: CT with worsening pancreatitis with focal necrosis. Will change diet back to NPO and restart fluid resuscitation. Discussed with gastroenterology, Dr. Tom Chowdhury. No fevers or any other evidence of infection. Time Spent With Patient Time: Total time managing care of this patient today ____ minutes.
[2025-02-17] VITALS (9 sets, daily range): BP systolic 101–142; BP diastolic 68–81; PULSE 70–88; RESP 16–20; TEMP 36.2–37.2; O2SAT 94–96; BMI 27.5
[2025-02-17] MEDS: Lactated Ringers 1,000 ML 100 ML IVCONT ×2 (00:07→06:18)
[2025-02-17] MEDS: Heparin Sodium,Porcine 5,000 UNIT/ML VIAL 5000 UNIT SUBCUT ×3 (00:07→16:15)
[2025-02-17] MEDS: gemfibroziL 600 MG TABLET PO ×2 (06:14→15:06)
[2025-02-17] MEDS: HYDROmorphone HCl 1 MG/ML SYRINGE IVPUSH ×6 (06:14→21:38)
[2025-02-17] MEDS: Omeprazole 20 MG CAPSULE.DR PO (06:14)
[2025-02-17 07:06] LABS: Glucose, Whole Blood 121 mg/dL (60-115)
[2025-02-17 07:31] LABS: Alanine Aminotransferase 97 U/L (0-40); Albumin Level 2.8 g/dL (3.5-5.0); Alkaline Phosphatase 316 U/L (39-117); Anion Gap 14 (12-20); Aspartate Amino Transferase 82 U/L (5-37); Bilirubin Total 0.6 mg/dL (0.0-1.0); Blood Urea Nitrogen 12 mg/dL (9-16); Calcium 8.9 mg/dL (8.4-10.2); Carbon Dioxide 24 mmol/L (22-29); Chloride 101 mmol/L (96-108); Creatinine Clr Calc Pharmacy 105.7; Estimated Glomerular Filt Rate > 60; Glucose Random 115 mg/dL (60-115); Potassium 3.3 mmol/L (3.3-5.1); Sodium 136 mmol/L (135-145)
[2025-02-17] MEDS: Folic Acid 1 MG TABLET PO (08:53)
[2025-02-17] MEDS: oxyCODONE HCl Immed Release 5 MG TABLET 10 MG PO ×4 (08:53→22:16)
[2025-02-17] MEDS: carvediloL 6.25 MG TABLET PO ×2 (08:53→21:38)
[2025-02-17] MEDS: FLUoxetine HCl 20 MG CAPSULE 80 MG PO (08:53)
[2025-02-17] MEDS: Isosorbide Mononitrate 30 MG TAB.ER.24H PO (08:53)
[2025-02-17] MEDS: lisinopriL 5 MG TABLET PO (08:54)
[2025-02-17] MEDS: amLODIPine Besylate 5 MG TABLET PO (08:54)
[2025-02-17] MEDS: clonazePAM 0.5 MG TABLET PO ×2 (08:54→21:38)
[2025-02-17] MEDS: Multivitamin TABLET 1 TAB PO (08:54)
[2025-02-17] MEDS: Thiamine HCL 100 MG TABLET PO (08:54)
[2025-02-17] MEDS: Clopidogrel Bisulfate 75 MG TABLET PO (08:54)
[2025-02-17 11:00] LABS: Glucose, Whole Blood 105 mg/dL (60-115)
--- NOTE | 2025-02-17 13:39 | P.PNIM_ITS ---
Subjective Subjective Date of Service: 02/17/25 Physical Exam 2 Vital Signs: Vital Signs: Last Vital Signs Temp 98.1 F 02/17/25 11:08 Pulse 73 02/17/25 11:08 Resp 20 02/17/25 11:08 BP 130/73 02/17/25 11:08 Pulse Ox 96 02/17/25 11:08 O2 Del Method Room Air 02/17/25 11:08 BMI result Body Mass Index 27.5 Objective Data Active Medications Amlodipine Besylate (Amlodipine Besylate 5 Mg Tablet) 5 mg PO DAILY [facility]; Protocol Last Admin: 02/17/25 08:54 Dose: 5 mg Documented By: SAIGE Carvedilol (Carvedilol 6.25 Mg Tablet) 6.25 mg PO BID [facility]; Protocol Last Admin: 02/17/25 08:53 Dose: 6.25 mg Documented By: SAIGE Clonazepam (Clonazepam 0.5 Mg Tablet) 0.5 mg PO BID [facility] Last Admin: 02/17/25 08:54 Dose: 0.5 mg Documented By: SAIGE Clopidogrel Bisulfate (Clopidogrel Bisulfate 75 Mg Tablet) 75 mg PO DAILY [facility] Last Admin: 02/17/25 08:54 Dose: 75 mg Documented By: SAIGE Fluoxetine HCl (Fluoxetine Hcl 20 Mg Capsule) 80 mg PO DAILY [facility] Last Admin: 02/17/25 08:53 Dose: 80 mg Documented By: SAIGE Folic Acid (Folic Acid 1 Mg Tablet) 1 mg PO DAILY [facility] Last Admin: 02/17/25 08:53 Dose: 1 mg Documented By: SAIGE [facility] ([facility] 600 Mg [facility]t) [facility] Last Admin: 02/17/25 06:14 Dose: 600 mg Documented By: JEREMIAH Heparin Sodium (Porcine) (Heparin Sodium,Porcine 5,000 Unit/Ml Vial) 5,000 unit SUBCUT Q8H [facility] Last Admin: 02/17/25 08:57 Dose: 5,000 unit Documented By: SAIGE Hydromorphone HCl (Hydromorphone Hcl 1 Mg/Ml Syringe) 1 mg IVPUSH Q2H PRN; Protocol PRN Reason: Pain, Severe (Pain Scale 7-10) Last Admin: 02/17/25 11:05 Dose: 1 mg Documented By: SAIGE Lactated Ringer's (Lr) 1,000 mls @ 100 mls/hr IVCONT .Q10H [facility] Last Admin: 02/17/25 06:18 Dose: 100 mls/hr Documented By: JEREMIAH Isosorbide Mononitrate (Isosorbide Mononitrate 30 Mg Tab.Er.24h) 30 mg PO DAILY [facility]; Protocol Last Admin: 02/17/25 08:53 Dose: 30 mg Documented By: SAIGE Lidocaine (Lidocaine 4 % Patch Adh..Patch) 2 patch TRANSDERMA DAILY [facility]; Protocol Last Admin: 02/17/25 08:55 Dose: Not Given Documented By: SAIGE Non-Admin Reason: Patient Refused Lisinopril (Lisinopril 5 Mg Tablet) 5 mg PO DAILY [facility]; Protocol Last Admin: 02/17/25 08:54 Dose: 5 mg Documented By: SAIGE Mirtazapine (Mirtazapine 7.5 Mg Tablet) 7.5 mg PO BEDTIME PRN PRN Reason: insomnia Multivitamins/Vitamin C (Multivitamin Tablet) 1 tab PO DAILY [facility] Last Admin: 02/17/25 08:54 Dose: 1 tab Documented By: SAIGE Nitroglycerin (Nitroglycerin 0.4 Mg Tab.Subl) 0.4 mg SUBLINGUAL Q5M PRN PRN Reason: CHEST PAIN Omeprazole (Omeprazole 20 Mg Capsule.Dr) 20 mg PO DAILY@0630 [facility] Last Admin: 02/17/25 06:14 Dose: 20 mg Documented By: JEREMIAH Ondansetron HCl (Ondansetron Hcl 4 Mg/2 Ml Vial) 4 mg IVPUSH Q6H PRN PRN Reason: Nausea and Vomiting Last Admin: 02/13/25 20:21 Dose: 4 mg Documented By: LISA Oxycodone HCl (Oxycodone Hcl Immed Release 5 Mg Tablet) 10 mg PO QID [facility] Last Admin: 02/17/25 08:53 Dose: 10 mg Documented By: SAIGE Tamsulosin HCl (Tamsulosin Hcl 0.4 Mg Capsule) 0.8 mg PO BEDTIME [facility] Last Admin: 02/16/25 22:01 Dose: 0.8 mg Documented By: JEREMIAH Thiamine HCl (Thiamine Hcl 100 Mg Tablet) 100 mg PO DAILY [facility] Last Admin: 02/17/25 08:54 Dose: 100 mg Documented By: SAGIE Labs 02/14/25 06:35 02/17/25 06:39 Labs: Laboratory Results - last 24 hr 02/16/25 02/16/25 02/17/25 15:45 20:46 06:39 Hold Purple Top SEE NOTE Anion Gap 14 Estim Creat Clear Calc 105.7 Estimated GFR > 60 POC Glucose 133 H 125 H Random Glucose 115 Calcium 8.9 Total Bilirubin 0.6 AST 82 H ALT 97 H Alkaline Phosphatase 316 H Total Protein 6.0 L Albumin 2.8 L 02/17/25 02/17/25 07:01 10:56 Hold Purple Top Anion Gap Estim Creat Clear Calc Estimated GFR POC Glucose 121 H 105 Random Glucose Calcium Total Bilirubin AST ALT Alkaline Phosphatase Total Protein Albumin Assessment and Plan (1) Acute necrotizing pancreatitis: Status: Acute (2) Alcohol abuse: Status: Acute (3) Hypertriglyceridemia: Status: Acute (4) Essential hypertriglyceridemia: Status: Acute Plan 69 y/o M BPH ,CAD ,Chronic low back pain,Erectile dysfunction,WOLF ,GERD ,Hypertension,Insomnia,Marajuana use,depression,Sleep apnea-admitted for acute pancreatitis and hypertriglyceridemia. Acute pancreatitis with hypertriglyceridemia: Went to ICU for insulin drip, IV fluid support, and parenteral pain medications a triglyceride improved, transferred to medical floor. Abdominal pain worsened and repeat CT scan showing tail of pancrease focal necrosis with pain now mainly in left loin Continue IV fluid, antiemetic and IV pain medication Dilaudid. GI input appreciated, Clear liquids, repeat CT in 3 days and if worsening consider transfer for necrostectomy Surgery consult Start clear liquid, advance as tolerated Outpatient Endocrinology follow up, check full Lipid panel tomorrow morning CAD Continue statin, Plavix, Imdur, beta-jfef Hypertension Continue Coreg/amlodipine/lisinopril Hx alcohol use Monitor CIWA, thiamine folic acid Addiction team eval Anxiety/depression Continue home clonazepam. BPH On Flomax nora noncomplaint cpap. DVT PPx Heparin SC Ongoing need of stay: Acute pancreatitis-neither hydration, IV pain medication, still unable to tolerate regular diet. Quality Stroke Does the patient have a stroke diagnosis?: No VTE Prior VTE?: No VTE Risk Level:: Medical - moderate - high VTE Device Contraindication: Treatment Not Indicated VTE Drug Contraindication: N/A - Med Ordered
--- NOTE | 2025-02-17 15:15 | PM.CNGS ---
History of Present Illness Consult details Consult date: 02/17/25 Reason for consult: abdominal pain Requesting physician: Henry Bolton Narrative: 69-year-old male patient with a history of alcohol abuse, coronary artery disease, hypertension, GERD, BPH initially admitted on 02/12/2025 with acute abdominal pain. The pain was felt mainly in the epigastrium and right upper quadrant with radiation to the back. He reports a chronic history of abdominal pain but denies a previous history of pancreatitis. The patient has subsequently presented to the emergency department because of the increased abdominal pain and was noted to have an elevated lipase and triglyceride level. CT abdomen and pelvis revealed evidence of acute pancreatitis without an abscess or necrosis. He was initially admitted to the ICU for IV hydration and insulin drip. Subsequently transferred to [facility] but continues to have abdominal pain in the epigastric region as well as radiation into the left upper quadrant and right upper quadrant and into the midback. Repeat CT abdomen and pelvis reveals evidence of pancreatic necrosis without abscess involving the tail of the pancreas. Surgical consultation was requested due to the pancreatic necrosis. Review of Systems Review of Systems: Yes all other systems are reviewed and are negative Constitutional: Constitutional: Reports body ache(s), Denies chills, Denies headache(s) and Reports poor appetite ENT: Denies headache(s) Cardiovascular: Cardiovascular: Reports Abdominal Distension, Denies irregular heart rhythm and Denies dyspnea on exertion Respiratory: Respiratory: Denies chest congestion and Denies dyspnea on exertion Gastrointestinal: Gastrointestinal: Reports abdominal pain, Reports loose stools, Denies nausea and Denies vomiting Neurologic: Denies headache(s) [facility] Social History Social History Household Members: Spouse Housing: House Do you presently have visiting nurse or other home services: No Alcohol intake: current Alcohol intake frequency: 3 or more drinks per day Alcohol type: beer Patient Tobacco Use Status: Former Tobacco user Smoked in Last 30 Days: No Use of substances other than those prescribed or required for medical reasons: No Currently Displaying Signs/Symptoms of Drug Intoxication Withdrawal: No Have you been hit, kicked, punched, or otherwise hurt by someone within the past year? If so, by whom?: No Do you feel safe in your current relationship?: Yes Is there a partner from a previous relationship who is making you feel unsafe now?: No Are you made to feel afraid or neglected: No Advance Directives: No Advance Directives Information Provided: Yes Do you have a plan to hurt others: No Plan Recently lost weight without trying: No Nutrition Risks: No Nutritional Risk Poor oral hygiene: No service: No Meds Allergies Allergy/AdvReac Type Severity Reaction Status Date / Time No Known Allergies Allergy Verified 02/12/25 02:02 Active Medications: Current Medications Amlodipine Besylate (Amlodipine Besylate 5 Mg Tablet) 5 mg PO DAILY [facility]; Protocol Last Admin: 02/17/25 08:54 Dose: 5 mg Carvedilol (Carvedilol 6.25 Mg Tablet) 6.25 mg PO BID [facility]; Protocol Last Admin: 02/17/25 08:53 Dose: 6.25 mg Clonazepam (Clonazepam 0.5 Mg Tablet) 0.5 mg PO BID [facility] Last Admin: 02/17/25 08:54 Dose: 0.5 mg Clopidogrel Bisulfate (Clopidogrel Bisulfate 75 Mg Tablet) 75 mg PO DAILY [facility] Last Admin: 02/17/25 08:54 Dose: 75 mg Fluoxetine HCl (Fluoxetine Hcl 20 Mg Capsule) 80 mg PO DAILY [facility] Last Admin: 02/17/25 08:53 Dose: 80 mg Folic Acid (Folic Acid 1 Mg Tablet) 1 mg PO DAILY [facility] Last Admin: 02/17/25 08:53 Dose: 1 mg Gemfibrozil (Gemfibrozil 600 Mg Tablet) 600 mg PO BIDAC [facility] Last Admin: 02/17/25 15:06 Dose: 600 mg Heparin Sodium (Porcine) (Heparin Sodium,Porcine 5,000 Unit/Ml Vial) 5,000 unit SUBCUT Q8H [facility] Last Admin: 02/17/25 08:57 Dose: 5,000 unit Hydromorphone HCl (Hydromorphone Hcl 1 Mg/Ml Syringe) 1 mg IVPUSH Q2H PRN; Protocol PRN Reason: Pain, Severe (Pain Scale 7-10) Last Admin: 02/17/25 14:14 Dose: 1 mg Lactated Ringer's (Lr) 1,000 mls @ 150 mls/hr IVCONT .Q6H40M [facility] Last Infusion: 02/17/25 14:14 Dose: 150 mls/hr Isosorbide Mononitrate (Isosorbide Mononitrate 30 Mg Tab.Er.24h) 30 mg PO DAILY [facility]; Protocol Last Admin: 02/17/25 08:53 Dose: 30 mg Lidocaine (Lidocaine 4 % Patch Adh..Patch) 2 patch TRANSDERMA DAILY [facility]; Protocol Last Admin: 02/17/25 08:55 Dose: Not Given Lisinopril (Lisinopril 5 Mg Tablet) 5 mg PO DAILY [facility]; Protocol Last Admin: 02/17/25 08:54 Dose: 5 mg Mirtazapine (Mirtazapine 7.5 Mg Tablet) 7.5 mg PO BEDTIME PRN PRN Reason: insomnia Multivitamins/Vitamin C (Multivitamin Tablet) 1 tab PO DAILY [facility] Last Admin: 02/17/25 08:54 Dose: 1 tab Nitroglycerin (Nitroglycerin 0.4 Mg Tab.Subl) 0.4 mg SUBLINGUAL Q5M PRN PRN Reason: CHEST PAIN Omeprazole (Omeprazole 20 Mg Capsule.Dr) 20 mg PO DAILY@0630 [facility] Last Admin: 02/17/25 06:14 Dose: 20 mg Ondansetron HCl (Ondansetron Hcl 4 Mg/2 Ml Vial) 4 mg IVPUSH Q6H PRN PRN Reason: Nausea and Vomiting Last Admin: 02/13/25 20:21 Dose: 4 mg Oxycodone HCl (Oxycodone Hcl Immed Release 5 Mg Tablet) 10 mg PO QID [facility] Last Admin: 02/17/25 15:05 Dose: 10 mg Tamsulosin HCl (Tamsulosin Hcl 0.4 Mg Capsule) 0.8 mg PO BEDTIME [facility] Last Admin: 02/16/25 22:01 Dose: 0.8 mg Thiamine HCl (Thiamine Hcl 100 Mg Tablet) 100 mg PO DAILY [facility] Last Admin: 02/17/25 08:54 Dose: 100 mg Home Medications ?Medication ?Instructions ?Recorded ?Confirmed ?Last Taken ?Type amlodipine 5 mg tablet 5 mg PO DAILY 02/12/25 02/12/25 02/11/25 History carvedilol 6.25 mg tablet 6.25 mg PO BID 02/12/25 02/12/25 02/11/25 History clonazepam 0.5 mg tablet 0.5 mg PO BID 02/12/25 02/12/25 02/11/25 History clopidogrel 75 mg tablet 75 mg PO DAILY 02/12/25 02/12/25 02/11/25 History fluoxetine 40 mg capsule 80 mg PO DAILY 02/12/25 02/12/25 02/11/25 History isosorbide mononitrate 30 mg 30 mg PO QAM 02/12/25 02/12/25 02/11/25 History tablet,extended release 24 hr lisinopril 5 mg tablet 5 mg PO DAILY 02/12/25 02/12/25 02/11/25 History mirtazapine 15 mg tablet 7.5 mg PO BEDTIME PRN insomnia 02/12/25 02/12/25 Unknown History multivitamin 1 tab PO DAILY 02/12/25 02/12/25 02/11/25 History nitroglycerin 0.4 mg sublingual 0.4 mg sublingual NEEDED angina 02/12/25 02/12/25 Unknown History tablet omeprazole 20 mg capsule,delayed 20 mg PO DAILY 02/12/25 02/12/25 02/11/25 History release oxycodone-acetaminophen 5 mg-325 1.5 tab PO QID PRN pain 02/12/25 02/12/25 02/11/25 History mg tablet sildenafil 100 mg tablet 100 mg PO DAILY 02/12/25 02/12/25 02/11/25 History simvastatin 40 mg tablet 40 mg PO BEDTIME 02/12/25 02/12/25 02/11/25 History tamsulosin 0.4 mg capsule 0.8 mg PO BEDTIME 02/12/25 02/12/25 02/11/25 History Physical Exam Vital Signs: Vital Signs: Last Vital Signs Temp 97.3 F 02/17/25 15:05 Pulse 88 02/17/25 15:05 Resp 18 02/17/25 15:05 BP 101/68 02/17/25 15:05 Pulse Ox 96 02/17/25 15:05 O2 Del Method Room Air 02/17/25 15:05 BMI result Body Mass Index 27.5 Const: General: no acute distress Nutritional Appearance: well nourished Orientation/consciousness: patient oriented x3 Limitations: no limitations HEENT: Head: Yes normocephalic and Yes atraumatic Ears: hearing grossly normal bilaterally Resp: Effort & Inspection: normal respiratory effort, no audible wheezes, no cough and no respiratory distress GI: Inspection: Yes normal to inspection Palpation (GI): Soft to palpation and Tenderness to palpation present (GI) in the epigastrum, in the LUQ and in the RUQ Percussion: Yes normal to percussion Rectal Exam - Male: Yes deferred Skin: General skin exam: no rashes or lesions noted Neuro: General: patient oriented x3 Extrem: General: Yes no clubbing, cyanosis or edema Results Labs 02/14/25 06:35 02/17/25 06:39 Labs: Abnormal lab results 02/16/25 02/16/25 02/17/25 Range/Units 15:45 20:46 06:39 POC Glucose 133 H 125 H (60-115) mg/dL AST 82 H (5-37) U/L ALT 97 H (0-40) U/L Alkaline Phosphatase 316 H (39-117) U/L Total Protein 6.0 L (6.5-8.0) g/dL Albumin 2.8 L (3.5-5.0) g/dL 02/17/25 Range/Units 07:01 POC Glucose 121 H (60-115) mg/dL AST (5-37) U/L ALT (0-40) U/L Alkaline Phosphatase (39-117) U/L Total Protein (6.5-8.0) g/dL Albumin (3.5-5.0) g/dL BMP 02/17/25 06:39 Sodium 136 Potassium 3.3 Chloride 101 Carbon Dioxide 24 BUN 12 Creatinine 0.69 Calcium 8.9 Liver Function 02/17/25 Range/Units 06:39 Total Bilirubin 0.6 (0.0-1.0) mg/dL AST 82 H (5-37) U/L ALT 97 H (0-40) U/L Alkaline Phosphatase 316 H (39-117) U/L Albumin 2.8 L (3.5-5.0) g/dL All other labs normal. Assessment and Plan (1) Acute necrotizing pancreatitis: Status: Acute Plan 69-year-old male patient presenting with a history of alcohol use and hypertriglyceridemia now with evidence of acute pancreatitis with necrosis. Patient denies a previous history of pancreatitis. On examination the patient does have epigastric tenderness without peritoneal signs. Review of the CT abdomen and pelvis confirms inflammatory changes around the pancreas with probable pancreatic necrosis in the distal body and tail but without evidence of an abscess. Recommend continuing supportive care. We will continue to monitor for evidence of an abscess formation. No surgical intervention indicated at this time. Procedures Date of Service Date of Service: 02/17/25
--- NOTE | 2025-02-17 15:52 | MHC.CM.PN ---
Per MD rounds patient is not medically cleared to discharge. He is NPO with IV fluids for Pancreatitis. DP Home self care family will transport.
[2025-02-17] MEDS: Lactated Ringers 1,000 ML 150 ML IVCONT ×2 (16:13→21:44)
[2025-02-17 16:14] LABS: Glucose, Whole Blood 141 mg/dL (60-115)
[2025-02-17 20:49] LABS: Glucose, Whole Blood 125 mg/dL (60-115)
[2025-02-17] MEDS: Tamsulosin HCL 0.4 MG CAPSULE 0.8 MG PO (21:38)
[2025-02-18] VITALS (12 sets, daily range): BP systolic 111–146; BP diastolic 69–84; PULSE 71–87; RESP 14–20; TEMP 36.1–36.9; O2SAT 95–98
[2025-02-18] MEDS: Heparin Sodium,Porcine 5,000 UNIT/ML VIAL 5000 UNIT SUBCUT ×3 (01:09→16:38)
[2025-02-18] MEDS: HYDROmorphone HCl 1 MG/ML SYRINGE IVPUSH ×8 (01:09→22:21)
[2025-02-18] MEDS: Lactated Ringers 1,000 ML 150 ML IVCONT ×3 (04:54→20:13)
[2025-02-18] MEDS: oxyCODONE HCl Immed Release 5 MG TABLET 10 MG PO ×5 (05:45→20:04)
[2025-02-18] MEDS: Omeprazole 20 MG CAPSULE.DR PO (05:46)
[2025-02-18 07:16] LABS: Basophils Absolute Auto 0.1 X10*3/uL (0.0-0.2); Basophils Percent Auto 0.5 % (0-2); Eosinophils Absolute Auto 0.2 X10*3/uL (0.0-0.4); Eosinophils Percent Auto 1.8 % (0-4); Hemoglobin 10.7 g/dl (14.0-18.0); Imm Gran Abs Auto 0.22 X10*3/uL (0.00-0.03); Lymphocytes Absolute Auto 0.9 X10*3/uL (1.2-4.9); Lymphocytes Percent Auto 8.1 % (20-40); MANUAL DIFF FLAG SCAN; Mean Corpuscular HGB Conc 34.5 g/dl (31.0-36.0); Mean Corpuscular Hemoglobin 29.3 pg (27.0-33.0); Mean Corpuscular Volume 84.9 fL (80.0-98.0); Mean Platelet Volume 9.4 fL (9.4-12.4); Monocytes Absolute Auto 1.5 X10*3/uL (0.1-1.2); Monocytes Percent Auto 13.8 % (2-11); NRBC Pct Auto 0.2 /100WBC (0.0-0.2); Neutrophils Absolute Auto 8.2 x10*3/uL (2.0-8.3); Neutrophils Percent Auto 73.8 % (45-73); Platelet Count 291 X10*3/uL (160-400); Red Blood Count 3.65 X10*6/uL (4.60-5.80); Red Cell Distribution Width 13.5 % (11.0-16.0); SCAN SMEAR FLAG 1; White Blood Count 11.1 X10*3/uL (4.8-10.8)
--- NOTE | 2025-02-18 07:17 | PM.PNGS ---
Subjective Subjective Date of Service: 02/18/25 Patient reports: feels better, pain is less and tolerating liquids well Interval history: Patients pain is decreased, still c/o left abdominal and back pain. He has been ambulating to the bathroom and the chair in his room. States he is tolerating clear liquids well. Reports he was able to get good sleep last night in the chair. He denies any fever or chills, nausea or vomiting. Physical Exam Vital Signs: Vital Signs: Last Vital Signs Temp 98.4 F 02/18/25 04:00 Pulse 85 02/18/25 04:00 Resp 20 02/18/25 04:54 BP 146/74 H 02/18/25 04:00 Pulse Ox 96 02/18/25 04:00 O2 Del Method Room Air 02/18/25 04:00 BMI result Body Mass Index 27.5 Const: General: comfortable and no acute distress Orientation/consciousness: patient oriented x3 Resp: Effort & Inspection: normal respiratory effort and able to speak in complete sentences GI: Palpation (GI): Soft to palpation, not firm, Tenderness to palpation present (GI) (LUQ tenderness to deep palpation), no guarding and not rigid Neuro: General: patient oriented x3 Objective Data Active Medications Amlodipine Besylate (Amlodipine Besylate 5 Mg Tablet) 5 mg PO DAILY [facility]; Protocol Last Admin: 02/17/25 08:54 Dose: 5 mg Documented By: SAIGE Carvedilol (Carvedilol 6.25 Mg Tablet) 6.25 mg PO BID [facility]; Protocol Last Admin: 02/17/25 21:38 Dose: 6.25 mg Documented By: JEREMIAH Clonazepam (Clonazepam 0.5 Mg Tablet) 0.5 mg PO BID [facility] Last Admin: 02/17/25 21:38 Dose: 0.5 mg Documented By: JEREMIAH Clopidogrel Bisulfate (Clopidogrel Bisulfate 75 Mg Tablet) 75 mg PO DAILY [facility] Last Admin: 02/17/25 08:54 Dose: 75 mg Documented By: SAIGE Fluoxetine HCl (Fluoxetine Hcl 20 Mg Capsule) 80 mg PO DAILY [facility] Last Admin: 02/17/25 08:53 Dose: 80 mg Documented By: SAIGE Folic Acid (Folic Acid 1 Mg Tablet) 1 mg PO DAILY [facility] Last Admin: 02/17/25 08:53 Dose: 1 mg Documented By: SAIGE Gemfibrozil (Gemfibrozil 600 Mg Tablet) 600 mg PO BIDAC [facility] Last Admin: 02/17/25 15:06 Dose: 600 mg Documented By: ELA Heparin Sodium (Porcine) (Heparin Sodium,Porcine 5,000 Unit/Ml Vial) 5,000 unit SUBCUT Q8H [facility] Last Admin: 02/18/25 01:09 Dose: 5,000 unit Documented By: JEREMIAH Hydromorphone HCl (Hydromorphone Hcl 1 Mg/Ml Syringe) 1 mg IVPUSH Q2H PRN; Protocol PRN Reason: Pain, Severe (Pain Scale 7-10) Last Admin: 02/18/25 04:54 Dose: 1 mg Documented By: JEREMIAH Lactated Ringer's (Lr) 1,000 mls @ 150 mls/hr IVCONT .Q6H40M [facility] Last Admin: 02/18/25 04:54 Dose: 150 mls/hr Documented By: JEREMIAH Isosorbide Mononitrate (Isosorbide Mononitrate 30 Mg Tab.Er.24h) 30 mg PO DAILY [facility]; Protocol Last Admin: 02/17/25 08:53 Dose: 30 mg Documented By: SAIGE Lidocaine (Lidocaine 4 % Patch Adh..Patch) 2 patch TRANSDERMA DAILY [facility]; Protocol Last Admin: 02/17/25 08:55 Dose: Not Given Documented By: SAIGE Non-Admin Reason: Patient Refused Lisinopril (Lisinopril 5 Mg Tablet) 5 mg PO DAILY [facility]; Protocol Last Admin: 02/17/25 08:54 Dose: 5 mg Documented By: SAIGE Mirtazapine (Mirtazapine 7.5 Mg Tablet) 7.5 mg PO BEDTIME PRN PRN Reason: insomnia Multivitamins/Vitamin C (Multivitamin Tablet) 1 tab PO DAILY [facility] Last Admin: 02/17/25 08:54 Dose: 1 tab Documented By: SAIGE Nitroglycerin (Nitroglycerin 0.4 Mg Tab.Subl) 0.4 mg SUBLINGUAL Q5M PRN PRN Reason: CHEST PAIN Omeprazole (Omeprazole 20 Mg Capsule.Dr) 20 mg PO DAILY@0630 [facility] Last Admin: 02/18/25 05:46 Dose: 20 mg Documented By: JEREMIAH Ondansetron HCl (Ondansetron Hcl 4 Mg/2 Ml Vial) 4 mg IVPUSH Q6H PRN PRN Reason: Nausea and Vomiting Last Admin: 02/13/25 20:21 Dose: 4 mg Documented By: LISA Oxycodone HCl (Oxycodone Hcl Immed Release 5 Mg Tablet) 10 mg PO QID [facility] Last Admin: 02/17/25 22:16 Dose: 10 mg Documented By: JEREMIAH Tamsulosin HCl (Tamsulosin Hcl 0.4 Mg Capsule) 0.8 mg PO BEDTIME [facility] Last Admin: 02/17/25 21:38 Dose: 0.8 mg Documented By: JEREMIAH Thiamine HCl (Thiamine Hcl 100 Mg Tablet) 100 mg PO DAILY [facility] Last Admin: 02/17/25 08:54 Dose: 100 mg Documented By: FOSTEKR Labs 02/14/25 06:35 02/17/25 06:39 Labs: Laboratory Results - last 24 hr 02/17/25 02/17/25 02/17/25 06:39 10:56 16:12 Anion Gap 14 Estim Creat Clear Calc 105.7 Estimated GFR > 60 POC Glucose 105 141 H Random Glucose 115 Calcium 8.9 Total Bilirubin 0.6 AST 82 H ALT 97 H Alkaline Phosphatase 316 H Total Protein 6.0 L Albumin 2.8 L 02/17/25 20:29 Anion Gap Estim Creat Clear Calc Estimated GFR POC Glucose 125 H Random Glucose Calcium Total Bilirubin AST ALT Alkaline Phosphatase Total Protein Albumin Procedures Date of Service Date of Service: 02/18/25 Progress Note: A&P Assessment and plan (1) Acute necrotizing pancreatitis: Status: Acute Plan 69-year-old male admitted to [facility] for acute pancreatitis. Patients pain is improving. Abdominal exam improved from yesterday, continues to have mild to pain to palpation of the LUQ. Exam otherwise benign Patient tolerating clear liquid diet. At this point will continue with conservative non surgical management per hospitalist team. Continue pancreatitis management, IVF, pain regimen Recommend ambulation Will continue to follow during stay, if concern for worsening of condition or possible abscess formation, would repeat CT. Time Spent With Patient Time: Total time managing care of this patient today ____ minutes. Quality Stroke Does the patient have a stroke diagnosis?: No VTE Prior VTE?: No VTE Risk Level:: Medical - moderate - high VTE Device Contraindication: Treatment Not Indicated VTE Drug Contraindication: N/A - Med Ordered
[2025-02-18 07:36] LABS: Alanine Aminotransferase 78 U/L (0-40); Albumin Level 2.8 g/dL (3.5-5.0); Alkaline Phosphatase 308 U/L (39-117); Anion Gap 11 (12-20); Aspartate Amino Transferase 52 U/L (5-37); Bilirubin Direct 0.3 mg/dL (0.0-0.5); Bilirubin Total 0.5 mg/dL (0.0-1.0); Blood Urea Nitrogen 8 mg/dL (9-16); Calcium 9.1 mg/dL (8.4-10.2); Carbon Dioxide 25 mmol/L (22-29); Chloride 100 mmol/L (96-108); Cholesterol 130 mg/dL (<200); Creatinine Clr Calc Pharmacy 117.7; Estimated Glomerular Filt Rate > 60; Glucose Random 132 mg/dL (60-115); HDL Cholesterol 25 mg/dL (>40); LDL Cholesterol Calculated 60 mg/dL (<100); Lactate Dehydrogenase 222 U/L (118-273); Magnesium 1.7 mg/dL (1.6-2.6); Potassium 3.2 mmol/L (3.3-5.1); Sodium 133 mmol/L (135-145); Total Protein 5.9 g/dL (6.5-8.0); Triglycerides 226 mg/dL (<150)
[2025-02-18 07:43] LABS: SLIDE REVIEW VERIFIED
[2025-02-18 07:59] LABS: Glucose, Whole Blood 121 mg/dL (60-115)
[2025-02-18] MEDS: Thiamine HCL 100 MG TABLET PO (08:44)
[2025-02-18] MEDS: Folic Acid 1 MG TABLET PO (08:45)
[2025-02-18] MEDS: Isosorbide Mononitrate 30 MG TAB.ER.24H PO (08:45)
[2025-02-18] MEDS: carvediloL 6.25 MG TABLET PO ×2 (08:45→20:04)
[2025-02-18] MEDS: lisinopriL 5 MG TABLET PO (08:45)
[2025-02-18] MEDS: amLODIPine Besylate 5 MG TABLET PO (08:45)
[2025-02-18] MEDS: gemfibroziL 600 MG TABLET PO ×2 (08:45→16:38)
[2025-02-18] MEDS: FLUoxetine HCl 20 MG CAPSULE 80 MG PO (08:45)
[2025-02-18] MEDS: Multivitamin TABLET 1 TAB PO (08:45)
[2025-02-18] MEDS: clonazePAM 0.5 MG TABLET PO ×2 (08:46→20:04)
[2025-02-18] MEDS: Clopidogrel Bisulfate 75 MG TABLET PO (08:46)
[2025-02-18 11:33] LABS: Glucose, Whole Blood 123 mg/dL (60-115)
--- NOTE | 2025-02-18 15:08 | PM.GIPN ---
Subjective Subjective Date of Service: 02/18/25 Interval History: Pt seen and evaluated at bedside. CT 5/ with interval necrotizing changes. Still has left sided back pain that radiates down to L leg. Has been on CLD. Critical Care Time (minutes): 0 Physical Exam Vital Signs: Vital Signs: Last Vital Signs Temp 96.9 F 02/18/25 11:25 Pulse 77 02/18/25 11:25 Resp 18 02/18/25 13:32 BP 111/69 02/18/25 11:25 Pulse Ox 96 02/18/25 11:25 O2 Del Method Room Air 02/18/25 11:25 BMI result Body Mass Index 27.5 NAD Abd, soft, nontender L back gray cloth washer to deep palpation Objective Data Labs 02/18/25 06:27 02/18/25 06:27 Labs: Laboratory Results - last 24 hr 02/17/25 02/17/25 02/18/25 16:12 20:29 06:27 WBC 11.1 H RBC 3.65 L Hgb 10.7 L Hct 31.0 L MCV 84.9 MCH 29.3 MCHC 34.5 RDW 13.5 Plt Count 291 D MPV 9.4 Immature Gran % (Auto) 2.0 H Neut % (Auto) 73.8 H Lymph % (Auto) 8.1 L [place] % (Auto) 13.8 H Eos % (Auto) 1.8 Baso % (Auto) 0.5 Lymph # (Auto) 0.9 L [place] # (Auto) 1.5 H Eos # (Auto) 0.2 Baso # (Auto) 0.1 Abs Immat Gran (auto) 0.22 H Absolute Neuts (auto) 8.2 Absolute Nucleated RBC 0.020 H Nucleated RBC % (auto) 0.2 Smear Tech's Comments VERIFIED Sodium 133 L Potassium 3.2 L Chloride 100 Carbon Dioxide 25 Anion Gap 11 L BUN 8 L Creatinine 0.62 Estim Creat Clear Calc 117.7 Estimated GFR > 60 POC Glucose 141 H 125 H Random Glucose 132 H Calcium 9.1 Magnesium 1.7 Total Bilirubin 0.5 Direct Bilirubin 0.3 AST 52 H ALT 78 H Alkaline Phosphatase 308 H Lactate Dehydrogenase 222 Total Creatine Kinase 18 L Total Protein 5.9 L Albumin 2.8 L Triglycerides 226 H Cholesterol 130 LDL Cholesterol, Calc 60 HDL Cholesterol 25 L 02/18/25 02/18/25 07:46 11:26 WBC RBC Hgb Hct MCV MCH MCHC RDW Plt Count MPV Immature Gran % (Auto) Neut % (Auto) Lymph % (Auto) [place] % (Auto) Eos % (Auto) Baso % (Auto) Lymph # (Auto) [place] # (Auto) Eos # (Auto) Baso # (Auto) Abs Immat Gran (auto) Absolute Neuts (auto) Absolute Nucleated RBC Nucleated RBC % (auto) Smear Tech's Comments Sodium Potassium Chloride Carbon Dioxide Anion Gap BUN Creatinine Estim Creat Clear Calc Estimated GFR POC Glucose 121 H 123 H Random Glucose Calcium Magnesium Total Bilirubin Direct Bilirubin AST ALT Alkaline Phosphatase Lactate Dehydrogenase Total Creatine Kinase Total Protein Albumin Triglycerides Cholesterol LDL Cholesterol, Calc HDL Cholesterol Procedures Date of Service Date of Service: 02/18/25 Progress Note: A&P Assessment and plan (1) Acute necrotizing pancreatitis: Status: Acute (2) Alcohol abuse: Status: Acute (3) Hypertriglyceridemia: Status: Acute Plan Left back pain radiating down to the left flank likely secondary to pancreatic tail necrosis. No peripancreatic fluid noted on the CT 02/16. Plan: -Advance to low fat solids -Encourage ambulation -Repeat CT abd/pel with contrast to r.o progression -If further progression of necrotizing pancreatitis or infected (gas noted) will need to be transferred to tertiary care Time Spent With Patient Time: Total time managing care of this patient today ____ minutes. Quality Stroke Does the patient have a stroke diagnosis?: No VTE Prior VTE?: No VTE Risk Level:: Medical - moderate - high VTE Device Contraindication: Treatment Not Indicated VTE Drug Contraindication: N/A - Med Ordered
--- NOTE | 2025-02-18 15:55 | P.PNIM_ITS ---
Subjective Subjective Date of Service: 02/18/25 Interval History: still some mild discomfort with clear liquids however patient notes some improvement Review of Systems denies chest pain Denies shortness of breath Denies nausea vomiting diarrhea Admits to abdominal pain that is somewhat worse after clear liquids Physical Exam 2 Vital Signs: Vital Signs: Last Vital Signs Temp 96.9 F 02/18/25 11:25 Pulse 77 02/18/25 11:25 Resp 18 02/18/25 13:32 BP 111/69 02/18/25 11:25 Pulse Ox 96 02/18/25 11:25 O2 Del Method Room Air 02/18/25 11:25 BMI result Body Mass Index 27.5 Const: Other: awake alert no acute distress Resp: Other: clear to auscultation bilaterally no rales rhonchi or wheezes Cardio: Other: no S4; positive S1-S2; no S3 murmurs rubs or gallops GI: Other: soft nontender nondistended normoactive bowel sounds Extrem: Other: no edema bilaterally Objective Data Active Medications Amlodipine Besylate (Amlodipine Besylate 5 Mg Tablet) 5 mg PO DAILY [facility]; Protocol Last Admin: 02/18/25 08:45 Dose: 5 mg Documented By: SAIGE Carvedilol (Carvedilol 6.25 Mg Tablet) 6.25 mg PO BID [facility]; Protocol Last Admin: 02/18/25 08:45 Dose: 6.25 mg Documented By: SAIGE Clonazepam (Clonazepam 0.5 Mg Tablet) 0.5 mg PO BID [facility] Last Admin: 02/18/25 08:46 Dose: 0.5 mg Documented By: SAIGE Clopidogrel Bisulfate (Clopidogrel Bisulfate 75 Mg Tablet) 75 mg PO DAILY [facility] Last Admin: 02/18/25 08:46 Dose: 75 mg Documented By: SAIGE Fluoxetine HCl (Fluoxetine Hcl 20 Mg Capsule) 80 mg PO DAILY [facility] Last Admin: 02/18/25 08:45 Dose: 80 mg Documented By: SAIGE Folic Acid (Folic Acid 1 Mg Tablet) 1 mg PO DAILY [facility] Last Admin: 02/18/25 08:45 Dose: 1 mg Documented By: SAIGE [facility] ([facility] 600 Mg [facility]) [facility] Last Admin: 02/18/25 08:45 Dose: 600 mg Documented By: SAIGE Heparin Sodium (Porcine) (Heparin Sodium,Porcine 5,000 Unit/Ml Vial) 5,000 unit SUBCUT Q8H [facility] Last Admin: 02/18/25 08:46 Dose: 5,000 unit Documented By: SAIGE Hydromorphone HCl (Hydromorphone Hcl 1 Mg/Ml Syringe) 1 mg IVPUSH Q2H PRN; Protocol PRN Reason: Pain, Severe (Pain Scale 7-10) Last Admin: 02/18/25 13:32 Dose: 1 mg Documented By: SAIGE Lactated Ringer's (Lr) 1,000 mls @ 150 mls/hr IVCONT .Q6H40M [facility] Last Admin: 02/18/25 13:03 Dose: 150 mls/hr Documented By: EUGENIA Isosorbide Mononitrate (Isosorbide Mononitrate 30 Mg Tab.Er.24h) 30 mg PO DAILY [facility]; Protocol Last Admin: 02/18/25 08:45 Dose: 30 mg Documented By: SAIGE Lidocaine (Lidocaine 4 % Patch Adh..Patch) 2 patch TRANSDERMA DAILY [facility]; Protocol Last Admin: 02/18/25 14:16 Dose: Not Given Documented By: SAIGE Non-Admin Reason: Patient Refused Lisinopril (Lisinopril 5 Mg Tablet) 5 mg PO DAILY [facility]; Protocol Last Admin: 02/18/25 08:45 Dose: 5 mg Documented By: SAIGE Mirtazapine (Mirtazapine 7.5 Mg Tablet) 7.5 mg PO BEDTIME PRN PRN Reason: insomnia Multivitamins/Vitamin C (Multivitamin Tablet) 1 tab PO DAILY [facility] Last Admin: 02/18/25 08:45 Dose: 1 tab Documented By: SAIGE Nitroglycerin (Nitroglycerin 0.4 Mg Tab.Subl) 0.4 mg SUBLINGUAL Q5M PRN PRN Reason: CHEST PAIN Omeprazole (Omeprazole 20 Mg Capsule.Dr) 20 mg PO DAILY@0630 [facility] Last Admin: 02/18/25 05:46 Dose: 20 mg Documented By: JEREMIAH Ondansetron HCl (Ondansetron Hcl 4 Mg/2 Ml Vial) 4 mg IVPUSH Q6H PRN PRN Reason: Nausea and Vomiting Last Admin: 02/13/25 20:21 Dose: 4 mg Documented By: LISA Oxycodone HCl (Oxycodone Hcl Immed Release 5 Mg Tablet) 10 mg PO QID [facility] Last Admin: 02/18/25 14:12 Dose: 10 mg Documented By: SAIGE Tamsulosin HCl (Tamsulosin Hcl 0.4 Mg Capsule) 0.8 mg PO BEDTIME [facility] Last Admin: 02/17/25 21:38 Dose: 0.8 mg Documented By: JEREMIAH Thiamine HCl (Thiamine Hcl 100 Mg Tablet) 100 mg PO DAILY [facility] Last Admin: 02/18/25 08:44 Dose: 100 mg Documented By: SAIGE Labs 02/18/25 06:27 02/18/25 06:27 Labs: Laboratory Results - last 24 hr 02/17/25 02/17/25 02/18/25 16:12 20:29 06:27 MCV 84.9 MCH 29.3 MCHC 34.5 RDW 13.5 Plt Count 291 D MPV 9.4 Immature Gran % (Auto) 2.0 H Neut % (Auto) 73.8 H Lymph % (Auto) 8.1 L [place] % (Auto) 13.8 H Eos % (Auto) 1.8 Baso % (Auto) 0.5 Lymph # (Auto) 0.9 L [place] # (Auto) 1.5 H Eos # (Auto) 0.2 Baso # (Auto) 0.1 Abs Immat Gran (auto) 0.22 H Absolute Neuts (auto) 8.2 Absolute Nucleated RBC 0.020 H Nucleated RBC % (auto) 0.2 Smear Tech's Comments VERIFIED Anion Gap 11 L Estim Creat Clear Calc 117.7 Estimated GFR > 60 POC Glucose 141 H 125 H Random Glucose 132 H Calcium 9.1 Magnesium 1.7 Total Bilirubin 0.5 Direct Bilirubin 0.3 AST 52 H ALT 78 H Alkaline Phosphatase 308 H Lactate Dehydrogenase 222 Total Creatine Kinase 18 L Total Protein 5.9 L Albumin 2.8 L Triglycerides 226 H Cholesterol 130 LDL Cholesterol, Calc 60 HDL Cholesterol 25 L 02/18/25 02/18/25 07:46 11:26 MCV MCH MCHC RDW Plt Count MPV Immature Gran % (Auto) Neut % (Auto) Lymph % (Auto) Rank[place] % (Auto) Eos % (Auto) Baso % (Auto) Lymph # (Auto) Rank[place] # (Auto) Eos # (Auto) Baso # (Auto) Abs Immat Gran (auto) Absolute Neuts (auto) Absolute Nucleated RBC Nucleated RBC % (auto) Smear Tech's Comments Anion Gap Estim Creat Clear Calc Estimated GFR POC Glucose 121 H 123 H Random Glucose Calcium Magnesium Total Bilirubin Direct Bilirubin AST ALT Alkaline Phosphatase Lactate Dehydrogenase Total Creatine Kinase Total Protein Albumin Triglycerides Cholesterol LDL Cholesterol, Calc HDL Cholesterol Assessment and Plan (1) Pancreatitis: Status: Acute (2) Essential hypertriglyceridemia: Status: Acute (3) Hypertension: Status: Acute Plan 69 y/o M BPH ,CAD ,Chronic low back pain,Erectile dysfunction,WOLF ,GERD ,Hypertension,Insomnia,Marajuana use,depression,Sleep apnea-admitted for acute pancreatitis and hypertriglyceridemia. 1.Acute pancreatitis with hypertriglyceridemia: - slowly improving. - Clear liquids advance as tolerated - follow clinically 2.CAD - stable and well compensated -Continue statin, Plavix, Imdur, beta-jeff 3.Hypertension -Continue Coreg/amlodipine/lisinopril 4.Hx alcohol use -Monitor CIWA, thiamine folic acid -Addiction team eval Heparin SC Ongoing need of stay: Acute pancreatitis-neither hydration, IV pain medication, still unable to tolerate regular diet. Quality Stroke Does the patient have a stroke diagnosis?: No VTE Prior VTE?: No VTE Risk Level:: Medical - moderate - high VTE Device Contraindication: Treatment Not Indicated VTE Drug Contraindication: N/A - Med Ordered
[2025-02-18 16:02] LABS: Glucose, Whole Blood 100 mg/dL (60-115)
[2025-02-18] MEDS: Tamsulosin HCL 0.4 MG CAPSULE 0.8 MG PO (20:04)
[2025-02-18 20:58] LABS: Glucose, Whole Blood 135 mg/dL (60-115)
[2025-02-19] VITALS (10 sets, daily range): BP systolic 107–160; BP diastolic 58–84; PULSE 71–88; RESP 14–20; TEMP 36.3–37.1; O2SAT 95–97
[2025-02-19] MEDS: Heparin Sodium,Porcine 5,000 UNIT/ML VIAL 5000 UNIT SUBCUT ×3 (03:05→16:18)
[2025-02-19] MEDS: HYDROmorphone HCl 1 MG/ML SYRINGE IVPUSH ×7 (03:05→20:12)
[2025-02-19] MEDS: Omeprazole 20 MG CAPSULE.DR PO (05:36)
--- NOTE | 2025-02-19 07:35 | PM.PNGS ---
Subjective Subjective Date of Service: 02/19/25 <Claudio Matute PA-C - Last Filed: 02/19/25 08:07> 02/19/25 <Graham Mcknight MD - Last Filed: 02/19/25 08:35> Interval history: Patient still having 6/10 pain, states it feels mostly like back pain. Patients diet advanced, tolerating full diet. Denies nause vomiting. He is ambulating. 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 Endorse bowel movements and passing flatus <Claudio Matute PA-C - Last Filed: 02/19/25 08:07> Physical Exam Vital Signs: Vital Signs: Last Vital Signs Temp 97.3 F 02/19/25 03:08 Pulse 75 02/19/25 03:08 Resp 16 02/19/25 03:08 BP 160/84 H 02/19/25 03:08 Pulse Ox 96 02/19/25 03:08 O2 Del Method Room Air 02/19/25 03:08 BMI result Body Mass Index 27.5 <Claudio Matute PA-C - Last Filed: 02/19/25 08:07> Const: General: comfortable and no acute distress <TRUDI Gonzalez Last Filed: 02/19/25 08:07> Orientation/consciousness: patient oriented x3 <TRUDI Gonzalez Last Filed: 02/19/25 08:07> Resp: Effort & Inspection: normal respiratory effort <Claudio Matute PA-C - Last Filed: 02/19/25 08:07> GI: Inspection: No distended <TRUDI Gonzalez Last Filed: 02/19/25 08:07> Palpation (GI): Soft to palpation, not firm, Tenderness to palpation present (GI) (mild epigastric tenderness), no guarding and not rigid <TRUDI Gonzalez Last Filed: 02/19/25 08:07> Percussion: Yes normal to percussion <TRUDI Gonzalez Last Filed: 02/19/25 08:07> Neuro: General: patient oriented x3 <TRUDI Gonzalez Last Filed: 02/19/25 08:07> Objective Data Active Medications Amlodipine Besylate (Amlodipine Besylate 5 Mg Tablet) 5 mg PO DAILY [facility]; Protocol Last Admin: 02/18/25 08:45 Dose: 5 mg Documented By: SAIGE Carvedilol (Carvedilol 6.25 Mg Tablet) 6.25 mg PO BID [facility]; Protocol Last Admin: 02/18/25 20:04 Dose: 6.25 mg Documented By: DICK Clopidogrel Bisulfate (Clopidogrel Bisulfate 75 Mg Tablet) 75 mg PO DAILY [facility] Last Admin: 02/18/25 08:46 Dose: 75 mg Documented By: SAIGE Fluoxetine HCl (Fluoxetine Hcl 20 Mg Capsule) 80 mg PO DAILY [facility] Last Admin: 02/18/25 08:45 Dose: 80 mg Documented By: SAIGE Folic Acid (Folic Acid 1 Mg Tablet) 1 mg PO DAILY [facility] Last Admin: 02/18/25 08:45 Dose: 1 mg Documented By: SAIGE Gemfibrozil (Gemfibrozil 600 Mg Tablet) 600 mg PO BIDAC [facility] Last Admin: 02/18/25 16:38 Dose: 600 mg Documented By: SAIGE Heparin Sodium (Porcine) (Heparin Sodium,Porcine 5,000 Unit/Ml Vial) 5,000 unit SUBCUT Q8H [facility] Last Admin: 02/19/25 03:05 Dose: 5,000 unit Documented By: DICK Hydromorphone HCl (Hydromorphone Hcl 1 Mg/Ml Syringe) 1 mg IVPUSH Q2H PRN; Protocol PRN Reason: Pain, Severe (Pain Scale 7-10) Last Admin: 02/19/25 05:36 Dose: 1 mg Documented By: DICK Isosorbide Mononitrate (Isosorbide Mononitrate 30 Mg Tab.Er.24h) 30 mg PO DAILY [facility]; Protocol Last Admin: 02/18/25 08:45 Dose: 30 mg Documented By: SAIGE Lidocaine (Lidocaine 4 % Patch Adh..Patch) 2 patch TRANSDERMA DAILY [facility]; Protocol Last Admin: 02/18/25 14:16 Dose: Not Given Documented By: SAIGE Non-Admin Reason: Patient Refused Lisinopril (Lisinopril 5 Mg Tablet) 5 mg PO DAILY [facility]; Protocol Last Admin: 02/18/25 08:45 Dose: 5 mg Documented By: SAIGE Mirtazapine (Mirtazapine 7.5 Mg Tablet) 7.5 mg PO BEDTIME PRN PRN Reason: insomnia Multivitamins/Vitamin C (Multivitamin Tablet) 1 tab PO DAILY [facility] Last Admin: 02/18/25 08:45 Dose: 1 tab Documented By: SAIGE Nitroglycerin (Nitroglycerin 0.4 Mg Tab.Subl) 0.4 mg SUBLINGUAL Q5M PRN PRN Reason: CHEST PAIN Omeprazole (Omeprazole 20 Mg Capsule.Dr) 20 mg PO DAILY@0630 [facility] Last Admin: 02/19/25 05:36 Dose: 20 mg Documented By: DICK Ondansetron HCl (Ondansetron Hcl 4 Mg/2 Ml Vial) 4 mg IVPUSH Q6H PRN PRN Reason: Nausea and Vomiting Last Admin: 02/13/25 20:21 Dose: 4 mg Documented By: LISA Oxycodone HCl (Oxycodone Hcl Immed Release 5 Mg Tablet) 10 mg PO QID [facility] Last Admin: 02/18/25 20:04 Dose: 10 mg Documented By: DICK Tamsulosin HCl (Tamsulosin Hcl 0.4 Mg Capsule) 0.8 mg PO BEDTIME [facility] Last Admin: 02/18/25 20:04 Dose: 0.8 mg Documented By: DICK Thiamine HCl (Thiamine Hcl 100 Mg Tablet) 100 mg PO DAILY [facility] Last Admin: 02/18/25 08:44 Dose: 100 mg Documented By: SAIGE <Claudio Matute PA-C - Last Filed: 02/19/25 08:07> Labs CBC & Chem 7: 02/18/25 06:27 02/18/25 06:27 <Claudio Matute PA-C - Last Filed: 02/19/25 08:07> Labs: Laboratory Results - last 24 hr 02/18/25 02/18/25 02/18/25 06:27 07:46 11:26 MCV 84.9 MCH 29.3 MCHC 34.5 RDW 13.5 Plt Count 291 D MPV 9.4 Immature Gran % (Auto) 2.0 H Neut % (Auto) 73.8 H Lymph % (Auto) 8.1 L [place] % (Auto) 13.8 H Eos % (Auto) 1.8 Baso % (Auto) 0.5 Lymph # (Auto) 0.9 L [place] # (Auto) 1.5 H Eos # (Auto) 0.2 Baso # (Auto) 0.1 Abs Immat Gran (auto) 0.22 H Absolute Neuts (auto) 8.2 Absolute Nucleated RBC 0.020 H Nucleated RBC % (auto) 0.2 Smear Tech's Comments VERIFIED Anion Gap 11 L Estim Creat Clear Calc 117.7 Estimated GFR > 60 POC Glucose 121 H 123 H Random Glucose 132 H Calcium 9.1 Magnesium 1.7 Total Bilirubin 0.5 Direct Bilirubin 0.3 AST 52 H ALT 78 H Alkaline Phosphatase 308 H Lactate Dehydrogenase 222 Total Creatine Kinase 18 L Total Protein 5.9 L Albumin 2.8 L Triglycerides 226 H Cholesterol 130 LDL Cholesterol, Calc 60 HDL Cholesterol 25 L 02/18/25 02/18/25 15:56 20:52 MCV MCH MCHC RDW Plt Count MPV Immature Gran % (Auto) Neut % (Auto) Lymph % (Auto) [place] % (Auto) Eos % (Auto) Baso % (Auto) Lymph # (Auto) [place] # (Auto) Eos # (Auto) Baso # (Auto) Abs Immat Gran (auto) Absolute Neuts (auto) Absolute Nucleated RBC Nucleated RBC % (auto) Smear Tech's Comments Anion Gap Estim Creat Clear Calc Estimated GFR POC Glucose 100 135 H Random Glucose Calcium Magnesium Total Bilirubin Direct Bilirubin AST ALT Alkaline Phosphatase Lactate Dehydrogenase Total Creatine Kinase Total Protein Albumin Triglycerides Cholesterol LDL Cholesterol, Calc HDL Cholesterol <Claudio Matute PA-C - Last Filed: 02/19/25 08:07> Procedures Date of Service Date of Service: 02/19/25 <Claudio Matute PA-C - Last Filed: 02/19/25 08:07> 02/19/25 <Graham Mcknight MD - Last Filed: 02/19/25 08:35> Progress Note: A&P Assessment and plan (1) Acute necrotizing pancreatitis: Status: Acute <Claudio Matute PA-C - Last Filed: 02/19/25 08:07> Assessment and Plan: 69 year old male admitted to [facility] for necrotizing pancreatitis. Patient has continued epigastric pain. Tolerating full diet. Ambulating. Passing bowel movements. Abdomen soft and benign aside from mild epigastric pain to palpation. From a surgical standpoint no plans for intervention. Patients 5/8 labs show slight increase in leukocytosis. Would repeat CT to assess pancreas for worsening necrosis or possible abscess Continue pancreatitis protocol, IVF, pain regimen Recommend repeat CT pancreas Recommend ambulation continue with regular diet <Claudio Matute PA-C - Last Filed: 02/19/25 08:07> 69 year old male admitted to [facility] for necrotizing pancreatitis. Patient has continued epigastric pain. Tolerating full diet. Ambulating. Passing bowel movements. Abdomen soft and benign aside from mild epigastric pain to palpation. From a surgical standpoint no plans for intervention. Patients 5/8 labs show slight increase in leukocytosis. Would repeat CT to assess pancreas for worsening necrosis or possible abscess Continue pancreatitis protocol, IVF, pain regimen Recommend repeat CT pancreas Recommend ambulation continue with regular diet Patient seen and examined in a agree with the above assessment and plan. Agree with repeating CT to evaluate for worsening necrosis. Continue supportive care. <Graham Mcknight MD - Last Filed: 02/19/25 08:35> Time Spent With Patient Time: Total time managing care of this patient today ____ minutes. <Claudio Matute PA-C - Last Filed: 02/19/25 08:07> Quality Stroke Does the patient have a stroke diagnosis?: No <Claudio Matute PA-C - Last Filed: 02/19/25 08:07> VTE Prior VTE?: No <Claudio Matute PA-C - Last Filed: 02/19/25 08:07> VTE Risk Level:: Medical - moderate - high <Claudio Matute PA-C - Last Filed: 02/19/25 08:07> VTE Device Contraindication: Treatment Not Indicated <Claudio Matute PA-C - Last Filed: 02/19/25 08:07> VTE Drug Contraindication: N/A - Med Ordered <lCaudio Matute PA-C - Last Filed: 02/19/25 08:07>
[2025-02-19] MEDS: Folic Acid 1 MG TABLET PO (07:41)
[2025-02-19] MEDS: Multivitamin TABLET 1 TAB PO (07:41)
[2025-02-19] MEDS: carvediloL 6.25 MG TABLET PO ×2 (07:41→20:12)
[2025-02-19] MEDS: Clopidogrel Bisulfate 75 MG TABLET PO (07:41)
[2025-02-19] MEDS: Isosorbide Mononitrate 30 MG TAB.ER.24H PO (07:41)
[2025-02-19] MEDS: FLUoxetine HCl 20 MG CAPSULE 80 MG PO (07:41)
[2025-02-19] MEDS: gemfibroziL 600 MG TABLET PO ×2 (07:41→16:18)
[2025-02-19] MEDS: oxyCODONE HCl Immed Release 5 MG TABLET 10 MG PO ×4 (07:41→20:11)
[2025-02-19] MEDS: amLODIPine Besylate 5 MG TABLET PO (07:42)
[2025-02-19] MEDS: Thiamine HCL 100 MG TABLET PO (07:42)
[2025-02-19] MEDS: lisinopriL 5 MG TABLET PO (07:42)
[2025-02-19 07:54] LABS: Glucose, Whole Blood 126 mg/dL (60-115)
--- NOTE | 2025-02-19 09:11 | PM.EVENT ---
Event Note Date of Service: 02/19/25 Event Note: Addicttion consult placed for patient medically admitted with alcohol related pancreatitis Per attending, Dr. Gutierrez, patient declines to meet with [facility] Please reconsult should he change his mind Time Spent With Patient Time: Total time managing care of this patient today ____ minutes.
[2025-02-19] MEDS: iohexoL 350 MG/ML 100 ML INFUS..BTL IV (10:39)
[2025-02-19 11:23] LABS: Glucose, Whole Blood 121 mg/dL (60-115)
--- NOTE | 2025-02-19 12:03 | P.PNGI_ITS ---
Subjective Subjective Date of Service: 02/19/25 Interval History: Seen and evaluated at bedside. CT pending. Pt otherwise reports improvement in abd pain as well as L sided back pain since yest. No N/V. Was tolerating diet but now NPO. Critical Care Time (minutes): 0 Physical Exam 2 Vital Signs: Vital Signs: Last Vital Signs Temp 97.7 F 02/19/25 08:00 Pulse 87 02/19/25 10:28 Resp 20 02/19/25 08:00 BP 137/83 02/19/25 10:28 Pulse Ox 97 02/19/25 10:28 O2 Del Method Room Air 02/19/25 08:00 BMI result Body Mass Index 27.5 NAD abd soft, nontender, no guarding Objective Data Labs 02/18/25 06:27 02/18/25 06:27 Labs: Laboratory Results - last 24 hr 02/18/25 02/18/25 02/19/25 15:56 20:52 07:13 POC Glucose 100 135 H 126 H 02/19/25 11:19 POC Glucose 121 H Procedures Date of Service Date of Service: 02/19/25 Progress Note: A&P Assessment and plan (1) Acute necrotizing pancreatitis: Status: Acute (2) Alcohol abuse: Status: Acute (3) Hypertriglyceridemia: Status: Acute Plan 69 y.o M presenting initially with acute interstitial panc 2/2 etOH and hyperTG on 02/12 which progressed to necrotizing panc based on imaging 02/16 --without infection. Today, clinically improved. CT pending. Plan: - Await CT results - If further progression of necrotizing pancreatitis or infected (gas noted) will need to be transferred to tertiary care - Advance to low fat solids from GI standpoint - Consider repeat CBC to trend leuks - Encourage ambulation - Bowel regimen Time Spent With Patient Time: Total time managing care of this patient today ____ minutes. Quality Stroke Does the patient have a stroke diagnosis?: No VTE Prior VTE?: No VTE Risk Level:: Medical - moderate - high VTE Device Contraindication: Treatment Not Indicated VTE Drug Contraindication: N/A - Med Ordered
--- NOTE | 2025-02-19 12:42 | MHC.CM.PN ---
Per MD rounds Patient is not medically cleared to discharge. GI Consult performed. May need Tertiary care transfer. A repeat CT is planned to assess further necrosis and for abscess. DP home self care. A family member will provide transportation home.
--- NOTE | 2025-02-19 15:47 | P.PNIM_ITS ---
Subjective Subjective Date of Service: 02/19/25 Interval History: Slowly improving. CT scan without worsening Review of Systems denies chest pain Denies shortness of breath Denies nausea vomiting diarrhea Admits to abdominal pain that is somewhat worse after clear liquids Physical Exam 2 Vital Signs: Vital Signs: Last Vital Signs Temp 97.7 F 02/19/25 15:28 Pulse 79 02/19/25 15:28 Resp 17 02/19/25 15:28 BP 111/58 L 02/19/25 15:28 Pulse Ox 95 02/19/25 15:28 O2 Del Method Room Air 02/19/25 15:28 BMI result Body Mass Index 27.5 Const: Other: awake alert no acute distress Resp: Other: clear to auscultation bilaterally no rales rhonchi or wheezes Cardio: Other: no S4; positive S1-S2; no S3 murmurs rubs or gallops GI: Other: soft nontender nondistended normoactive bowel sounds Extrem: Other: no edema bilaterally Objective Data Active Medications Amlodipine Besylate (Amlodipine Besylate 5 Mg Tablet) 5 mg PO DAILY [facility]; Protocol Last Admin: 02/19/25 07:42 Dose: 5 mg Documented By: ALISON Carvedilol (Carvedilol 6.25 Mg Tablet) 6.25 mg PO BID [facility]; Protocol Last Admin: 02/19/25 07:41 Dose: 6.25 mg Documented By: ALISON Clopidogrel Bisulfate (Clopidogrel Bisulfate 75 Mg Tablet) 75 mg PO DAILY [facility] Last Admin: 02/19/25 07:41 Dose: 75 mg Documented By: ALISON Fluoxetine HCl (Fluoxetine Hcl 20 Mg Capsule) 80 mg PO DAILY [facility] Last Admin: 02/19/25 07:41 Dose: 80 mg Documented By: ALISON Folic Acid (Folic Acid 1 Mg Tablet) 1 mg PO DAILY [facility] Last Admin: 02/19/25 07:41 Dose: 1 mg Documented By: ALISON Gemfibrozil (Gemfibrozil 600 Mg Tablet) 600 mg PO BIDAC [facility] Last Admin: 02/19/25 07:41 Dose: 600 mg Documented By: ALISON Heparin Sodium (Porcine) (Heparin Sodium,Porcine 5,000 Unit/Ml Vial) 5,000 unit SUBCUT Q8H [facility] Last Admin: 02/19/25 07:42 Dose: 5,000 unit Documented By: ALISON Hydromorphone HCl (Hydromorphone Hcl 1 Mg/Ml Syringe) 1 mg IVPUSH Q2H PRN; Protocol PRN Reason: Pain, Severe (Pain Scale 7-10) Last Admin: 02/19/25 12:36 Dose: 1 mg Documented By: ALISON Isosorbide Mononitrate (Isosorbide Mononitrate 30 Mg Tab.Er.24h) 30 mg PO DAILY [facility]; Protocol Last Admin: 02/19/25 07:41 Dose: 30 mg Documented By: ALISON Lidocaine (Lidocaine 4 % Patch Adh..Patch) 2 patch TRANSDERMA DAILY [facility]; Protocol Last Admin: 02/19/25 07:43 Dose: Not Given Documented By: ALISON Non-Admin Reason: Patient Refused Lisinopril (Lisinopril 5 Mg Tablet) 5 mg PO DAILY [facility]; Protocol Last Admin: 02/19/25 07:42 Dose: 5 mg Documented By: ALISON Mirtazapine (Mirtazapine 7.5 Mg Tablet) 7.5 mg PO BEDTIME PRN PRN Reason: insomnia Multivitamins/Vitamin C (Multivitamin Tablet) 1 tab PO DAILY [facility] Last Admin: 02/19/25 07:41 Dose: 1 tab Documented By: ALISON Nitroglycerin (Nitroglycerin 0.4 Mg Tab.Subl) 0.4 mg SUBLINGUAL Q5M PRN PRN Reason: CHEST PAIN Omeprazole (Omeprazole 20 Mg Capsule.Dr) 20 mg PO DAILY@0630 [facility] Last Admin: 02/19/25 05:36 Dose: 20 mg Documented By: DICK Ondansetron HCl (Ondansetron Hcl 4 Mg/2 Ml Vial) 4 mg IVPUSH Q6H PRN PRN Reason: Nausea and Vomiting Last Admin: 02/13/25 20:21 Dose: 4 mg Documented By: LISA Oxycodone HCl (Oxycodone Hcl Immed Release 5 Mg Tablet) 10 mg PO QID [facility] Last Admin: 02/19/25 12:34 Dose: 10 mg Documented By: ALISON Tamsulosin HCl (Tamsulosin Hcl 0.4 Mg Capsule) 0.8 mg PO BEDTIME [facility] Last Admin: 02/18/25 20:04 Dose: 0.8 mg Documented By: DICK Thiamine HCl (Thiamine Hcl 100 Mg Tablet) 100 mg PO DAILY [facility] Last Admin: 02/19/25 07:42 Dose: 100 mg Documented By: ALISON Labs 02/18/25 06:27 02/18/25 06:27 Labs: Laboratory Results - last 24 hr 02/18/25 02/18/25 02/19/25 15:56 20:52 07:13 POC Glucose 100 135 H 126 H 02/19/25 11:19 POC Glucose 121 H Assessment and Plan (1) Pancreatitis: Status: Acute (2) Essential hypertriglyceridemia: Status: Acute Plan 69 y/o M BPH ,CAD ,Chronic low back pain,Erectile dysfunction,WOLF ,GERD ,Hypertension,Insomnia,Marajuana use,depression,Sleep apnea-admitted for acute pancreatitis and hypertriglyceridemia. 1.Acute pancreatitis with hypertriglyceridemia: - slowly improving.... CTA without worsening - tolerating low-fat diet - follow clinically 2.CAD - stable and well compensated -Continue statin, Plavix, Imdur, beta-jeff 3.Hypertension -Continue Coreg/amlodipine/lisinopril 4.Hx alcohol use -Monitor CIWA, thiamine folic acid -Addiction team eval Heparin SC Ongoing need of stay: Acute pancreatitis-neither hydration, IV pain medication, still unable to tolerate regular diet. Quality Stroke Does the patient have a stroke diagnosis?: No VTE Prior VTE?: No VTE Risk Level:: Medical - moderate - high VTE Device Contraindication: Treatment Not Indicated VTE Drug Contraindication: N/A - Med Ordered
[2025-02-19 15:57] LABS: Glucose, Whole Blood 143 mg/dL (60-115)
[2025-02-19] MEDS: Tamsulosin HCL 0.4 MG CAPSULE 0.8 MG PO (20:11)
[2025-02-19 20:52] LABS: Glucose, Whole Blood 122 mg/dL (60-115)
[2025-02-20] MEDS: HYDROmorphone HCl 1 MG/ML SYRINGE IVPUSH ×4 (00:44→10:49)
[2025-02-20] MEDS: Heparin Sodium,Porcine 5,000 UNIT/ML VIAL 5000 UNIT SUBCUT ×2 (00:46→08:20)
[2025-02-20 03:40] VITALS: BP 133/84; PULSE 74; RESP 16; TEMP 36.5; O2SAT 96
[2025-02-20] MEDS: Omeprazole 20 MG CAPSULE.DR PO (04:21)
[2025-02-20 07:18] LABS: Glucose, Whole Blood 135 mg/dL (60-115)
[2025-02-20 07:56] VITALS: BP 114/69; PULSE 76; RESP 16; TEMP 36.6; O2SAT 94
[2025-02-20] MEDS: Lidocaine 4 % Patch ADH..PATCH 2 PATCH TRANSDERMA (08:18)
[2025-02-20] MEDS: gemfibroziL 600 MG TABLET PO (08:19)
[2025-02-20] MEDS: Clopidogrel Bisulfate 75 MG TABLET PO (08:19)
[2025-02-20] MEDS: FLUoxetine HCl 20 MG CAPSULE 80 MG PO (08:19)
[2025-02-20] MEDS: Isosorbide Mononitrate 30 MG TAB.ER.24H PO (08:19)
[2025-02-20] MEDS: Multivitamin TABLET 1 TAB PO (08:19)
[2025-02-20] MEDS: Thiamine HCL 100 MG TABLET PO (08:19)
[2025-02-20] MEDS: lisinopriL 5 MG TABLET PO (08:19)
[2025-02-20] MEDS: amLODIPine Besylate 5 MG TABLET PO (08:19)
[2025-02-20] MEDS: Folic Acid 1 MG TABLET PO (08:19)
[2025-02-20] MEDS: carvediloL 6.25 MG TABLET PO (08:20)
[2025-02-20] MEDS: oxyCODONE HCl Immed Release 5 MG TABLET 10 MG PO (08:20)
--- NOTE | 2025-02-20 10:34 | P.DS_ITS ---
DS: Providers Provider Date of Service: 02/20/25 Date of admission: 02/12/25 08:38 Date of discharge: 02/20/25 Primary care physician: ELISA Aguirre Consults: 02/16/25 07:37 Consult to Gastroenterology Routine Consulting Provider: [facility] – [place] Gastroenterology Services Reason for consultation: pancreatitis /hypertriglycerdemia Has provider been notified: No 02/17/25 13:38 Consult to General Surgery Routine Consulting Provider: [facility] – [place] General Surgeons Reason for consultation: necrotizing Pancreatitis 02/17/25 13:40 Addiction Medicine Provider Routine Consulting Provider: Addiction Covering Reason for consultation: alcohol abuse w pancreatitis DS: Diagnosis Discharge Diagnosis (1) Pancreatitis: Status: Acute (2) Essential hypertriglyceridemia: Status: Acute DS: Summary Hospital Course Hospital Course: 69-year-old gentleman with underlying history of alcohol abuse, CAD, hypertension, GERD, BPH admitted on 02/12/2025 with acute on chronic abdominal pain overall ongoing for 3-4 months, but significantly worse over 2 days prior to admission. On ER evaluation patient with moderate epigastric tenderness with evidence of pancreatitis on laboratory studies and imaging, but no evidence of necrosis. Also noted to have significant hypertriglyceridemia. Patient started on insulin drip, IV fluid support, and parenteral pain medications and admitted to the intensive care unit. Subsequently improved an insulin drip tapered to off. Transferred to telemetry and seen in consultation by GI. Maintained on clear liquids and ultimately advance to low-fat diet. Pain persistent and repeat CT scan done with IV contrast on 02/19 which failed to demonstrate any acute changes. Patient continued to tolerate his diet and at this point in time is medically acceptable for discharge. He has a follow up with his PCP; states he has referred to GI through his PCP but never attended. He has been instructed to follow up with his PCP and then get referral to GI. Time Attestation Discharge Coordination Time (in mins): 35 Quality: Safe Use of Opioids Does Pt have an Active Cancer Diagnosis on the Problem List?: No Quality: Stroke Does the patient have a stroke diagnosis?: No Physical Exam Vital Signs: Vital Signs: Last Vital Signs Temp 97.8 F 02/20/25 07:56 Pulse 76 02/20/25 07:56 Resp 16 02/20/25 07:56 BP 114/69 02/20/25 07:56 Pulse Ox 94 02/20/25 07:56 O2 Del Method Room Air 02/20/25 07:56 BMI result Body Mass Index 27.5 Const: Other: awake alert no acute distress Resp: Other: clear to auscultation bilaterally no rales rhonchi or wheezes Cardio: Other: no S4; positive S1-S2; no S3 murmurs rubs or gallops GI: Other: soft nontender nondistended normoactive bowel sounds Extrem: Other: no edema bilaterally DS: Data Data Completed and Pending Labs on day of discharge: Laboratory Results - last 24 hr 02/19/25 02/19/25 02/19/25 11:19 15:40 20:45 POC Glucose 121 H 143 H 122 H 02/20/25 07:09 POC Glucose 135 H Discharge Plan Discharge Anticipated Discharge Date/Time: 02/20/25 10:28 Patient Disposition: Home, Self-Care Discharge Diagnosis: Acute pancreatitis Referrals: Ruma Kumar PA [Primary Care Provider] - 1 Week Discharge Medications: New gemfibrozil 600 mg Tablet 600 mg PO BIDAC Qty: 60 0RF thiamine mononitrate (vit B1) 100 mg Tablet 100 mg PO DAILY Qty: 30 0RF oxycodone 10 mg tablet 10 mg PO Q8H PRN (Reason: pain) Qty: 10 0RF Rx Instructions: Partial Fill upon patient request. Continued fluoxetine 40 mg capsule 80 mg PO DAILY carvedilol 6.25 mg tablet 6.25 mg PO BID isosorbide mononitrate 30 mg tablet extended release 24 hr 30 mg PO QAM clonazepam 0.5 mg tablet 0.5 mg PO BID clopidogrel 75 mg tablet 75 mg PO DAILY amlodipine 5 mg tablet 5 mg PO DAILY sildenafil 100 mg tablet 100 mg PO DAILY simvastatin 40 mg tablet 40 mg PO BEDTIME oxycodone-acetaminophen 5-325 mg tablet 1.5 tab PO QID PRN (Reason: pain) tamsulosin 0.4 mg capsule 0.8 mg PO BEDTIME nitroglycerin 0.4 mg tablet, sublingual 0.4 mg sublingual NEEDED omeprazole 20 mg capsule,delayed release(DR/EC) 20 mg PO DAILY lisinopril 5 mg tablet 5 mg PO DAILY mirtazapine 15 mg tablet 7.5 mg PO BEDTIME PRN (Reason: insomnia) multivitamin Tablet 1 tab PO DAILY Discharge Orders: Discharge Order (Routine); Ordered 02/20/25 Ordered By: Rashad Gutierrez Diet: Low-fat diet Activity on Discharge: As tolerated Stand Alone Forms: Patient Portal Discharge page Print Language: Macedonian Care Plan Goals: Resume all medicines as taken prior to hospitalization. Lopid 600 twice daily has been added to your regimen. Attempt to follow a low-fat diet Health Concerns: Follow up with the PCP next available; you will need GI follow up with GI in yo ur insurance plan Plan of Treatment: Avoid alcohol at all cost Assessment: See discharge summary
[2025-02-20 11:27] VITALS: BP 98/64; PULSE 81; RESP 14; TEMP 36.2; O2SAT 96
[2025-02-20 11:42] LABS: Glucose, Whole Blood 155 mg/dL (60-115)
--- NOTE | 2025-02-20 13:09 | MHC.CM.PN ---
Second IMM 02/20. Pt is medically cleared for discharge home self-care, pts to transport him home.
== END 2025-02-20 12:48 | disposition home or self-care (01) | DRG 440 ==
LOC: HO.ED 05:18 → HO.EDOVER 08:38 → HO.ICU 08:47 → HO.IMC 02-13 13:42
PROVIDERS: Emergency Medicine; Internal Medicine; Registered Nurse Community Health; Student in an Organized Health Care Education/Training Program; Admitting Provider Internal Medicine Pulmonary Disease; Emergency Provider Internal Medicine; PCP Physician Assistant; Visit Provider Hospitalist
DX: K85.21 Alcohol induced acute pancreatitis with uninfected necrosis (principal); I25.10 Atherosclerotic heart disease of native coronary artery without angina pectoris; I10 Essential (primary) hypertension; N40.0 Benign prostatic hyperplasia without lower urinary tract symptoms; E78.1 Pure hyperglyceridemia; G47.33 Obstructive sleep apnea (adult) (pediatric); Z91.199 Patient's noncompliance with other medical treatment and regimen due to unspecified reason; F10.10 Alcohol abuse, uncomplicated; K21.9 Gastro-esophageal reflux disease without esophagitis; I95.9 Hypotension, unspecified; F41.9 Anxiety disorder, unspecified; F32.A Depression, unspecified; Z79.899 Other long term (current) drug therapy
CPT/HCPCS: 36415; 71045; 72110; 73521; 74177; 80048; 80053; 80061; 80076; 82040; 82550; 82803; 82947; 83036; 83615; 83690; 83735; 84100; 84478; 84484; 85025; 85610; 93005; 97116; 97161; 97530; 99285; J1171; J1644; J2270; J2405; J2470; J3411; J3480; J7120; Q9967

== ENCOUNTER → 2025-02-12 02:03 | Outpatient (BNV) | payer OTHER, SELFPAY | PROVIDERS: Admitting Provider Internal Medicine Pulmonary Disease; Emergency Provider Internal Medicine; PCP Physician Assistant; Visit Provider Internal Medicine Cardiovascular Disease | DX: R94.31 Abnormal electrocardiogram [ECG] [EKG] (principal); R07.9 Chest pain, unspecified | CPT/HCPCS: 93010 ==

== ENCOUNTER → 2025-02-12 02:10 | Outpatient (BNV) | payer OTHER, SELFPAY | PROVIDERS: Emergency Provider Internal Medicine; PCP Physician Assistant; Visit Provider Radiology Diagnostic Radiology | DX: R16.0 Hepatomegaly, not elsewhere classified (principal); R07.9 Chest pain, unspecified | CPT/HCPCS: 71045; 74177 ==

== ENCOUNTER 2025-02-12 08:38 | Outpatient (BNV) | payer MEDICARE, SELFPAY | END 2025-02-19 10:35 | PROVIDERS: Admitting Provider Internal Medicine Pulmonary Disease; Emergency Provider Internal Medicine; PCP Physician Assistant; Visit Provider Radiology Diagnostic Radiology | DX: K85.90 Acute pancreatitis without necrosis or infection, unspecified (principal) | CPT/HCPCS: 74177 ==

== ENCOUNTER 2025-02-12 08:38 | Outpatient (BNV) | payer MEDICARE, SELFPAY | END 2025-02-16 09:25 | PROVIDERS: Admitting Provider Internal Medicine Pulmonary Disease; Emergency Provider Internal Medicine; PCP Physician Assistant; Visit Provider Radiology Diagnostic Radiology | DX: K85.91 Acute pancreatitis with uninfected necrosis, unspecified (principal); M47.817 Spondylosis without myelopathy or radiculopathy, lumbosacral region; I70.0 Atherosclerosis of aorta; M16.0 Bilateral primary osteoarthritis of hip | CPT/HCPCS: 72110; 73521; 74177 ==

== ENCOUNTER → 2025-02-12 08:38 | Outpatient (BNV) | payer MEDICARE, SELFPAY | PROVIDERS: Admitting Provider Internal Medicine Pulmonary Disease; Emergency Provider Internal Medicine; PCP Physician Assistant; Visit Provider Internal Medicine | DX: K85.90 Acute pancreatitis without necrosis or infection, unspecified (principal); E78.1 Pure hyperglyceridemia; F10.10 Alcohol abuse, uncomplicated | CPT/HCPCS: 99223 ==

== ENCOUNTER → 2025-02-12 08:38 | Outpatient (BNV) | payer MEDICARE, SELFPAY | PROVIDERS: Admitting Provider Internal Medicine Pulmonary Disease; Emergency Provider Internal Medicine; PCP Physician Assistant; Visit Provider Surgery | DX: K85.91 Acute pancreatitis with uninfected necrosis, unspecified (principal) | CPT/HCPCS: 99222; 99232 ==

== ENCOUNTER → 2025-02-12 08:38 | Outpatient (BNV) | payer OTHER, SELFPAY | PROVIDERS: Admitting Provider Internal Medicine Pulmonary Disease; Emergency Provider Internal Medicine; PCP Physician Assistant; Visit Provider Internal Medicine | DX: K85.90 Acute pancreatitis without necrosis or infection, unspecified (principal); E78.1 Pure hyperglyceridemia; I10 Essential (primary) hypertension | CPT/HCPCS: 99231; 99232; 99233; 99499 ==

== ENCOUNTER → 2025-02-12 08:38 | Outpatient (BNV) | payer OTHER, SELFPAY | PROVIDERS: Admitting Provider Internal Medicine Pulmonary Disease; Emergency Provider Internal Medicine; PCP Physician Assistant; Visit Provider Internal Medicine Pulmonary Disease | DX: K85.90 Acute pancreatitis without necrosis or infection, unspecified (principal); E78.1 Pure hyperglyceridemia; F10.10 Alcohol abuse, uncomplicated; I10 Essential (primary) hypertension; I25.10 Atherosclerotic heart disease of native coronary artery without angina pectoris | CPT/HCPCS: 99223; 99232 ==